=== PATIENT | male | born 1990 | race Caucasian/White ===

== ENCOUNTER 2021-10-27 18:29 | Outpatient (CLI) | payer OTHER, SELFPAY ==
[2021-10-27 17:30] LABS: Abs Immature Grans 0.01 10^3/uL (0.0-0.06); Absolute Basophil Count 0.03 10^3/uL (0.0-0.2); Absolute Eosinophil Count 0.03 10^3/uL (0.0-0.7); Absolute Lymphocyte Count 1.77 10^3/uL (1.2-3.4); Absolute Neutrophil Count 4.11 10^3/uL (1.2-6.7); Basophils % 0.5; Eosinophils % 0.5; HGB 17.1 g/dL (13.5-17.5); Immature Grans % 0.2; Lymphocytes % 27.9; MCH 30.2 pg (27.0-33.0); MCHC 34.2 % (32.0-36.0); MCV 88 fL (80-95); MPV 11.3 fL (8.0-11.0); Monocytes % 6.3; Neutrophils % 64.6; Platelet Count 161 10^3/uL (130-400); RBC 5.66 10^6/uL (4.36-5.78); RDW 11.9 % (11.8-14.1); RDW-SD 38.7 fL; WBC 6.35 10^3/uL (4.4-10.8)
== END 2021-10-27 18:30 | disposition home or self-care (01) ==
LOC: LBO 18:34
PROVIDERS: Visit Provider Physician Assistant
DX: R53.81 Other malaise (principal); R53.83 Other fatigue; R19.7 Diarrhea, unspecified; F41.8 Other specified anxiety disorders
CPT/HCPCS: 36415; 87798; 85025; 87207

== ENCOUNTER 2021-10-30 15:42 | Emergency (ER) | payer OTHER, SELFPAY ==
--- NOTE | 2021-10-30 15:45 | RT.EKG_ITS ---
APPROVED REPORT Exam: Resting ECG Reason for Exam: dizziness Patient Location: E HR:109 bpm ECG Measurements Heart Rate 109 AXIS DE 141 P 75 QRSd 86 QRS 76 QT 305 T -38 QTc 412 Conclusion Sinus tachycardia...rate> 99. Sinus. Normal axis. No STEMI. I have reviewed and interpreted ECG and agree with software generated interpretation.
[2021-10-30 15:50] VITALS: BP 148/125; PULSE 127; RESP 20; TEMP 37.1; O2SAT 99
[2021-10-30 16:45] LABS: Bilirubin Negative (Negative); Blood Negative (Negative); Clarity Clear (Clear); Glucose Negative (Negative); Ketones Negative (Negative); Leukocyte Esterase Negative (Negative); Nitrite Negative (Negative); Urobilinogen 0.2 EU/dL (Up TO 0.2); pH 7.5 (5-8)
--- NOTE | 2021-10-30 16:49 | NUR.NOTE ---
Nursing Note: Pt ambulatory to room, ekg & UA obtained previously, pt denies current c/o pain. Labs done, provider in to see pt, NAD noted.
[2021-10-30 16:51] LABS: Abs Immature Grans 0.02 10^3/uL (0.0-0.06); Absolute Basophil Count 0.03 10^3/uL (0.0-0.2); Absolute Eosinophil Count 0.05 10^3/uL (0.0-0.7); Absolute Lymphocyte Count 1.82 10^3/uL (1.2-3.4); Absolute Monocyte Count 0.44 10^3/uL (0.1-0.8); Absolute Neutrophil Count 4.14 10^3/uL (1.2-6.7); Basophils % 0.5; Eosinophils % 0.8; HCT 48.5 % (40.0-50.0); HGB 16.8 g/dL (13.5-17.5); Immature Grans % 0.3; MCH 30.5 pg (27.0-33.0); MCHC 34.6 % (32.0-36.0); MCV 88 fL (80-95); MPV 10.5 fL (8.0-11.0); Monocytes % 6.8; Neutrophils % 63.6; Platelet Count 195 10^3/uL (130-400); RBC 5.51 10^6/uL (4.36-5.78); RDW 11.9 % (11.8-14.1); RDW-SD 38.2 fL
--- NOTE | 2021-10-30 17:00 | DI.CT_ITS ---
Exam(s) CT ABDOMEN PELVIS W EXAM: CT ABDOMEN PELVIS W CLINICAL HISTORY: upper abd/lower abd pain TECHNIQUE: Imaging Protocol: Axial computed tomography images with coronal and sagittal reformatted images were created and reviewed CONTRAST MATERIAL: Intravenous: Omnipaque 350 Contrast volume:100 mL Oral: No COMPARISON: No exams were available for comparison FINDINGS: ABDOMEN: Lung Bases: Normal where visualized. Liver: Normal density. No measurable mass. Portal, Superior Mesenteric, and Splenic Veins: Unremarkable. Gallbladder and Biliary Tract: No radiodense calculus or dilation. Pancreas: Normal density, no abnormal calcifications or inflammatory process. Spleen: Normal. Adrenals: No masses seen. Kidneys: Normal size, contour and axis. No radiodense stones or obstructive uropathy. No masses seen. Abdominal Aorta: Abdominal portion non-dilated. Bowel: No obstruction or bowel wall thickening. No evidence of appendicitis. Peritoneal Cavity: No ascites, collection or mesenteric inflammatory response. No free air. Lymph Nodes: Within normal limits. Bones: Within normal limits for the patient's age. Soft Tissues: There is a small fat containing umbilical hernia. PELVIS: Bladder: Symmetric distention, no gross wall thickening. Reproductive Organs: Unremarkable as visualized. Lymph Nodes: Within normal limits. Bones: Within normal limits for the patient's age. IMPRESSION: No acute abdominal or pelvic process. RADIATION DOSE DELIVERED: 681.66mGy.cm Total DLP DATA REPOSITORY: All CT scans at this facility are submitted to the National Radiology Data Registry (NRDR) Dose Index Registry (DIR) with the [employer] ([employer]). RADIATION OPTIMIZATION: All CT scans at this facility use at least one of these dose optimization te chniques: automated exposure control; mA and/or kV adjustment per patient size (includes targeted exa ms where dose is matched to clinical indication); or iterative reconstruction.
[2021-10-30 17:04] VITALS: BP 147/92; PULSE 83; TEMP 36.9; O2SAT 98
[2021-10-30 17:04] LABS: *AMPHETAMINES SCREEN URINE Negative (Negative); *BARBITURATES SCREEN URINE Negative (Negative); *BENZODIAZEPINES SCREEN URINE Negative (Negative); Cannabinoids THC Negative (Negative); Cocaine Screen,Urine Negative (Negative); METHADONE URINE SCREEN Negative (Negative); OPIATES URINE SCREEN Negative (Negative)
--- NOTE | 2021-10-30 17:05 | ED.GENADUL_ITS ---
Discharge Plan Disposition Patient Disposition: HOME Condition: Stable Discharge Details Clinical Impression: Chronic nausea, Chronic abdominal pain, Dizziness Primary Care Provider: None,None ED Provider: Tita Brower Home Meds and New Rx's Prescriptions: New sucralfate [Carafate] 1 gram tablet 1 gm PO QACHS Qty: 14 0RF ondansetron 4 mg tablet,disintegrating 4 mg PO TID PRN (Reason: nausea and vomiting) Qty: 6 0RF Continued buspirone 5 mg tablet 5 mg PO TID Qty: 90 0RF Discharge Instructions Instructions: Acute Nausea and Vomiting (ED), Dizziness (ED), Chronic Abdominal Pain (ED) Additional Instructions: Your lab work and imaging today is reassuring and shows no evidence of acute concerning or significant findings. Your COVID and influenza test today are negative. Start taking an [id number] H2 hamlet such as Pepcid or PPI such as Prilosec as directed once daily for the next 2 weeks. Prescriptions for Zofran and Carafate sent electronically to your pharmacy. Follow-up with primary care doctor in 1 week and for referral to general surgery if her symptoms not improve or worsen for consideration for upper endoscopy and/or colonoscopy if indicated. Return to the emergency department with any worsening or new concerning symptoms. Referrals: Louise Potter DO [OSTEOPATHIC DOCTOR] - Discharge Data Discharge Date/Time-TO BE ENTERED AT DEPARTURE: 10/30/21 19:58 Discharge Physician: Tita Brower Medical Decision Making 31-year-old male presents with 1 month of nausea, upset stomach. abdominal pain, and dizziness. Heart rate 120s on arrival. Patient is afebrile and appears significantly anxious. His abdomen is soft and mildly tender in epigastrium. No rigidity or guarding. No CVA tenderness. Differential diagnosis includes gastroenteritis, colitis, PUD, GERD, gastritis, appendicitis, cholecystitis, pancreatitis. History of presentation does not appear consistent with ACS, dissection or AAA. We will place an IV, bolus IV fluids, screening labs, urinalysis, CT abdomen pelvis and COVID test. We will give a dose of IV Zofran, IV Pepcid and Ativan. Labs and imaging reviewed and unremarkable. Patient was given a GI cocktail and Carafate and denies any upper abdominal pain, nausea or dizziness. He does still admit to occasional lower abdominal pain. Patient is requesting to go home. He is staying in the area for the next few weeks before returning to [place]. Patient given surgery follow-up information if needed for referral for upper endoscopy or colonoscopy that do not improve or worsen. He is advised to start an [id number] H2 hamlet or PPI. Prescription for Zofran and Carafate sent electronically to his family's pharmacy. Usual and customary return precautions given prior to discharge. Medical Records Medical records reviewed: Yes I reviewed the patient's medical records. Imaging Data Radiologic Study: Radiologist's impression: CT Abdomen And Pelvis With Contrast Exam date and time: 10/30/2021 5:37 PM Age: 31 years old Clinical indication: Upper abd / lower abd pain TECHNIQUE: Imaging protocol: Computed tomography of the abdomen and pelvis with contrast. Contrast material: OMNIPAQUE 350; Contrast volume: 100 ml; Contrast route: INTRAVENOUS (IV);? COMPARISON: No relevant prior studies available. FINDINGS: Lungs: No acute infiltrate in either lung base. Liver: Normal. No mass. Gallbladder and bile ducts: Normal. No calcified stones. No ductal dilation. Pancreas: Normal. No ductal dilation. Spleen: Normal. No splenomegaly. Adrenal glands: Normal. No mass. Kidneys and ureters: No hydronephrosis or perinephric fluid. No calcified renal or ureteral stones. Stomach and bowel: Unremarkable. No obstruction. No mucosal thickening. Appendix: Normal appendix. Intraperitoneal space: No free air. No significant fluid collection. Vasculature: Unremarkable. No abdominal aortic aneurysm. Lymph nodes: No enlarged lymph nodes. Urinary bladder: Unremarkable as visualized. Reproductive: Unremarkable as visualized. Bones/joints: No acute fracture. Pectum excavatum deformity of the imaged portion of the lower sternum. Soft tissues: Small fat-containing umbilical hernia. IMPRESSION: No acute intra-abdominal or pelvic process. Dictated and Authenticated by: Dante Martinez MD. Ordering:ANNE MARIE Rivers MD Lab Data Lab results reviewed: Yes I reviewed the patient's lab results. Labs: Laboratory Tests Range/Units 10/30/21 10/30/21 10/30/21 16:36 16:36 16:45 WBC (4.4-10.8) 10^3/uL RBC (4.36-5.78) 10^6/uL Hgb (13.5-17.5) g/dL Hct (40.0-50.0) % MCV (80-95) fL MCH (27.0-33.0) pg MCHC (32.0-36.0) % RDW (11.8-14.1) % Plt Count (130-400) 10^3/uL MPV (8.0-11.0) fL Immature Gran % Neutrophils % Lymphocytes % Monocytes % Eosinophils % Basophils % Nucleated RBC % (0.0-0.3) % Absolute Neutrophils (1.2-6.7) 10^3/uL Absolute Lymphocytes (1.2-3.4) 10^3/uL Absolute Monocytes (0.1-0.8) 10^3/uL Absolute Eosinophils (0.0-0.7) 10^3/uL Absolute Basophils (0.0-0.2) 10^3/uL Sodium (136-145) mmol/L Potassium (3.5-5.1) mmol/L Chloride (98-107) mmol/L Carbon Dioxide (21.0-32.0) mmol/L Anion Gap (3-11) mmol/L BUN (7-18) mg/dL Creatinine (0.70-1.30) mg/dL Estimated GFR/1.73 m2 (mL/min/1.73m2) Glucose (74-106) mg/dL Calcium (8.5-10.1) mg/dL Magnesium (1.8-2.4) mg/dL Total Bilirubin (0.2-1.0) mg/dL AST (15-37) U/L ALT (16-63) U/L Alkaline Phosphatase (46-116) U/L Troponin I (<or=60) ng/L Total Protein (6.4-8.2) g/dL Albumin (3.4-5.0) g/dL Lipase (73-393) U/L Urine Color (Yellow) Yellow Urine Clarity (Clear) Clear Urine pH (5-8) 7.5 Ur Specific [place] (1.005-1.025) 1.020 Urine Protein (Negative) mg/dL Negative Urine Ketones (Negative) mg/dL Negative Urine Blood (Negative) Negative Urine Nitrite (Negative) Negative Urine Bilirubin (Negative) Negative Urine Urobilinogen (Up TO 0.2) EU/dL 0.2 Ur Leukocyte Esterase (Negative) Negative Urine Glucose (Negative) mg/dL Negative Urine Opiates Screen (Negative) Negative Urine Methadone Screen (Negative) Negative Ur Barbiturates Screen (Negative) Negative Ur Tricyclics Screen (Negative) Negative Ur Amphetamines Screen (Negative) Negative U Benzodiazepines Scrn (Negative) Negative Urine Cocaine Screen (Negative) Negative Ur THC Screen (Negative) Negative Ethyl Alcohol (<10) mg/dL COVID-19 Source Not Applicable SARS-CoV-2 (PCR) (Negative) Negative Influenza Type A (PCR) (Negative) Negative Influenza Type B (PCR) (Negative) Negative RSV (PCR) (Negative) Negative Range/Units 10/30/21 10/30/21 10/30/21 16:45 16:45 16:45 WBC (4.4-10.8) 10^3/uL 6.50 RBC (4.36-5.78) 10^6/uL 5.51 Hgb (13.5-17.5) g/dL 16.8 Hct (40.0-50.0) % 48.5 MCV (80-95) fL 88 MCH (27.0-33.0) pg 30.5 MCHC (32.0-36.0) % 34.6 RDW (11.8-14.1) % 11.9 Plt Count (130-400) 10^3/uL 195 MPV (8.0-11.0) fL 10.5 Immature Gran % 0.3 Neutrophils % 63.6 Lymphocytes % 28.0 Monocytes % 6.8 Eosinophils % 0.8 Basophils % 0.5 Nucleated RBC % (0.0-0.3) % 0.0 Absolute Neutrophils (1.2-6.7) 10^3/uL 4.14 Absolute Lymphocytes (1.2-3.4) 10^3/uL 1.82 Absolute Monocytes (0.1-0.8) 10^3/uL 0.44 Absolute Eosinophils (0.0-0.7) 10^3/uL 0.05 Absolute Basophils (0.0-0.2) 10^3/uL 0.03 Sodium (136-145) mmol/L 136 Potassium (3.5-5.1) mmol/L 3.5 Chloride (98-107) mmol/L 99 Carbon Dioxide (21.0-32.0) mmol/L 27.7 Anion Gap (3-11) mmol/L 9.3 BUN (7-18) mg/dL 13 Creatinine (0.70-1.30) mg/dL 1.2 Estimated GFR/1.73 m2 (mL/min/1.73m2) >= 60.00 Glucose (74-106) mg/dL 115 H Calcium (8.5-10.1) mg/dL 9.0 Magnesium (1.8-2.4) mg/dL 2.0 Total Bilirubin (0.2-1.0) mg/dL 0.6 AST (15-37) U/L 19 ALT (16-63) U/L 59 Alkaline Phosphatase (46-116) U/L 80 Troponin I (<or=60) ng/L < 50 Total Protein (6.4-8.2) g/dL 8.2 Albumin (3.4-5.0) g/dL 4.7 Lipase (73-393) U/L 178 Urine Color (Yellow) Urine Clarity (Clear) Urine pH (5-8) Ur Specific [place] (1.005-1.025) Urine Protein (Negative) mg/dL Urine Ketones (Negative) mg/dL Urine Blood (Negative) Urine Nitrite (Negative) Urine Bilirubin (Negative) Urine Urobilinogen (Up TO 0.2) EU/dL Ur Leukocyte Esterase (Negative) Urine Glucose (Negative) mg/dL Urine Opiates Screen (Negative) Urine Methadone Screen (Negative) Ur Barbiturates Screen (Negative) Ur Tricyclics Screen (Negative) Ur Amphetamines Screen (Negative) U Benzodiazepines Scrn (Negative) Urine Cocaine Screen (Negative) Ur THC Screen (Negative) Ethyl Alcohol (<10) mg/dL < 3.0 COVID-19 Source SARS-CoV-2 (PCR) (Negative) Influenza Type A (PCR) (Negative) Influenza Type B (PCR) (Negative) RSV (PCR) (Negative) HPI General Mode of arrival: ambulatory . Date/Time Provider Initiated Documentation: 10/30/21 16:23 . Limitations to Documentation: no limitations . Information obtained by: patient . HPI Narrative: Patient is a 31-year-old male who presents with 1 month of nausea, dizziness, upset stomach, abdominal pain, and decreased appetite. Patient states his symptoms started 1 month ago when he traveled to [place] and started with in a few days of arrival with nausea, dizziness, abdominal pain and diarrhea. He states his diarrhea has since resolved but is still having nausea, dizziness, and decreased appetite and has had worsening abdominal pain over the past few days. Patient states the abdominal pain is more constant and sharp in epigastrium and intermittent sharp in the lower abdomen. He has taken Pepto- Bismol without relief. He denies any aggravating or relieving factors. He states he drinks a few drinks of alcohol you normally daily due to his job in the [employer] business but has decreased it to 1 drink of alcohol daily and denies any worsening of symptoms with this. He states he thinks he has lost approximately 5 pounds due to decreased appetite. He denies any vomiting or urinary symptoms. He states his bowel movements have been fairly normal re cently. He states he was seen at [facility] and was given Cipro for his symptoms recently but states he stopped after 1 dose as he developed a sudden onset of sweating and tingling in his hands after taking it. He states he has had similar episodes occurring nightly over the past few weeks but has not taken any additional Cipro. Related Data Home Medications Medication Instructions Recorded Confirmed buspirone 5 mg tablet 5 mg PO TID #90 tabs 10/27/21 10/30/21 ondansetron 4 mg disintegrating 4 mg PO TID PRN nausea and 10/30/21 tablet vomiting #6 tabs sucralfate 1 gram tablet (Carafate) 1 gm PO QACHS #14 tabs 10/30/21 Previous Rx's Medication Instructions Recorded buspirone 5 mg tablet 5 mg PO TID #90 tabs 10/27/21 ondansetron 4 mg disintegrating 4 mg PO TID PRN nausea and 10/30/21 tablet vomiting #6 tabs sucralfate 1 gram tablet (Carafate) 1 gm PO QACHS #14 tabs 10/30/21 Allergies Allergy/AdvReac Type Severity Reaction Status Date / Time ciprofloxacin [From Cipro] Allergy Verified 10/30/21 15:55 General Stated Complaint: Abd Prob KATE: 3 Review of Systems All systems reviewed & are unremarkable except as noted in HPI and below Constitutional Constitutional: Denies chills, Denies excessive sweating, Denies fatigue, Denies fever(s), Denies weakness and Denies weight loss Eyes Eyes: Reports system reviewed and no additional complaints, except as documented and Denies blurry vision ENT Ears, Nose, Mouth, and Throat: Denies vertigo, Denies dizziness, Denies otalgia, Denies nasal congestion, Denies sore throat and Denies throat swelling Cardiovascular Cardiovascular: Denies chest pain, Denies syncope, Denies rapid heart rate and Denies dyspnea Respiratory Respiratory: Denies chest congestion, Denies cough, Denies pain on inspiration and Denies dyspnea Gastrointestinal Gastrointestinal: Denies abdominal pain, Denies diarrhea and Denies vomiting Genitourinary Genitourinary: Denies hematuria, Denies dysuria and Denies flank pain Musculoskeletal Musculoskeletal: Denies back pain and Denies joint swelling Integumentary/Breasts Skin/Breast: Denies lesions and Denies rash Neurologic Neurologic: Denies behavioral changes, Denies confusion, Denies vertigo, Denies dizziness, Denies syncope, Denies localized weakness and Denies weakness Psychiatric Psychiatric: Denies behavioral changes, Denies confusion and Denies depression Endocrine Endocrine: Denies excessive sweating and Denies fatigue Hematologic/Lymphatic Hematologic/Lymphatic: Denies easy bruising and Denies lymphadenopathy Allergic/Immunologic Allergic/Immunologic: Denies throat swelling PFSH All Active Problems (Updated 10/30/21 @ 19:49 by Tita Brower DO) Chronic nausea (Acute) Chronic abdominal pain (Acute) Dizziness (Acute) Medical History (Updated 10/30/21 @ 19:49 by Tita Brower DO) Acne Concussion x2 Deformity PECTUS Fever convulsion x 2 and age of 3 year Vasovagal syncope (11/10/13) Surgical History (Updated 10/30/21 @ 18:25 by Tita Brower DO) No significant past surgical history Family History Mother No problems noted. Father No problems noted. Sister No problems noted. Grandfather No problems noted. Grandfather No problems noted. Grandmother No problems noted. Grandmother No problems noted. Social History Smoking/Tobacco Use Status: Never Smoking risk assessment performed?: Yes Alcohol Intake: current Alcohol Intake frequency: 0-2 drinks per day Drug use: Occasionally Substance use type: crack/cocaine Do you feel safe at home: Yes Do you feel safe in your relationship?: Yes Exam Const General: cooperative, healthy appearing, comfortable and anxious Orientation: alert, awake and oriented x3 HENMT Head: normal to inspection Ears: hearing grossly normal bilaterally, external ears normal and TM's normal bilaterally General nose exam: external nose normal Face and sinus: normal facial exam Mouth: oral mucosae normal Teeth and gingiva: dentition normal Throat: posterior oropharynx normal Eyes General: appearance normal, both eyes and all related structures Eyelids: eyelids normal Pupils: PERRL EOM: EOM intact bilaterally Neck Neck: normal visual inspection Lymphatic: no lymphadenopathy noted Chest Chest: normal inspection of the chest Resp Effort & Inspection: normal respiratory effort and able to speak in complete sentences Auscultation: clear to auscultation bilaterally Cardio Rate: regular rate Rhythm: regular rhythm GI Inspection: normal to inspection Palpation: soft, not firm, no guarding, no hepatosplenomegaly, no masses and tender in the epigastrum Auscultation: normal bowel sounds Back/Spine/Pelvis Back: no CVA tenderness Skin General skin exam: no rashes or lesions noted Neuro General: patient alert and patient awake Cognition: normal cognition Speech: speech normal Gait: normal gait Motor: muscle tone normal throughout Sensory Exam: no sensory deficits noted Extrem General: normal to inspection, full ROM and capillary refill normal Psych Appearance: grossly normal Mental Status: mental status grossly normal Speech and Movement: speech and movement normal Affect: normal affect Thought Process: normal Course Vital Signs Vital signs: Vital Signs Temperature 98.8 F 10/30/21 15:50 Pulse 127 H 10/30/21 15:50 Respiratory Rate 20 10/30/21 15:50 Blood Pressure 148/125 H 10/30/21 15:50 Pulse Oximetry 99 10/30/21 15:50 Temperature 98.8 F 10/30/21 15:50 Temperature Source Temporal Artery Scan 10/30/21 15:50 Pulse 127 H 10/30/21 15:50 Respiratory Rate 20 10/30/21 15:50 Respiratory Effort Non-Labored 10/30/21 15:56 Blood Pressure 148/125 H 10/30/21 15:50 Blood Pressure Position Sitting 10/30/21 15:50 Pulse Oximetry 99 10/30/21 15:50 Oxygen Delivery Method Room Air 10/30/21 15:50 Oxygen Flow Rate 0 10/30/21 15:50 Lab/Test Results Lab/Test Results: Laboratory Tests Range/Units 10/30/21 10/30/21 16:36 16:45 WBC (4.4-10.8) 10^3/uL 6.50 RBC (4.36-5.78) 10^6/uL 5.51 Hgb (13.5-17.5) g/dL 16.8 Hct (40.0-50.0) % 48.5 MCV (80-95) fL 88 MCH (27.0-33.0) pg 30.5 MCHC (32.0-36.0) % 34.6 RDW (11.8-14.1) % 11.9 Plt Count (130-400) 10^3/uL 195 MPV (8.0-11.0) fL 10.5 Immature Gran % 0.3 Neutrophils % 63.6 Lymphocytes % 28.0 Monocytes % 6.8 Eosinophils % 0.8 Basophils % 0.5 Nucleated RBC % (0.0-0.3) % 0.0 Absolute Neutrophils (1.2-6.7) 10^3/uL 4.14 Absolute Lymphocytes (1.2-3.4) 10^3/uL 1.82 Absolute Monocytes (0.1-0.8) 10^3/uL 0.44 Absolute Eosinophils (0.0-0.7) 10^3/uL 0.05 Absolute Basophils (0.0-0.2) 10^3/uL 0.03 Urine Color (Yellow) Yellow Urine Clarity (Clear) Clear Urine pH (5-8) 7.5 Ur Specific [place] (1.005-1.025) 1.020 Urine Protein (Negative) mg/dL Negative Urine Ketones (Negative) mg/dL Negative Urine Blood (Negative) Negative Urine Nitrite (Negative) Negative Urine Bilirubin (Negative) Negative Urine Urobilinogen (Up TO 0.2) EU/dL 0.2 Ur Leukocyte Esterase (Negative) Negative Urine Glucose (Negative) mg/dL Negative
[2021-10-30] MEDS: Normal Saline 1,000 ML 1000 ML IV (17:19)
[2021-10-30] MEDS: LORazepam 20 MG/10 ML VIAL IVP (17:19)
[2021-10-30] MEDS: Ondansetron 4 MG/2 ML VIAL IVP (17:19)
[2021-10-30] MEDS: Famotidine 20 MG/2 ML VIAL IVP (17:19)
[2021-10-30 17:24] LABS: Tricyclic Antidepressants Negative (Negative)
[2021-10-30 17:24] LABS: ETHANOL BLOOD < 3.0 mg/dL (<10)
[2021-10-30 17:26] LABS: ALT 59 U/L (16-63); AST 19 U/L (15-37); Albumin 4.7 g/dL (3.4-5.0); Alkaline Phosphatase 80 U/L (46-116); Anion Gap 9.3 mmol/L (3-11); BUN 13 mg/dL (7-18); Bilirubin, Total 0.6 mg/dL (0.2-1.0); CO2 27.7 mmol/L (21.0-32.0); CREATININE 1.2 mg/dL (0.70-1.30); Chloride 99 mmol/L (98-107); Glucose 115 mg/dL (74-106); Lipase 178 U/L (73-393); Potassium 3.5 mmol/L (3.5-5.1); Sodium 136 mmol/L (136-145); Total Protein 8.2 g/dL (6.4-8.2); Troponin I < 50 ng/L (<or=60)
[2021-10-30 17:36] LABS: COVID-19 PCR Negative (Negative); Influenza A PCR Negative (Negative); Influenza B PCR Negative (Negative); RSV PCR Negative (Negative)
[2021-10-30] MEDS: Omnipaque 350 MG/ML 100 ML BTL IJ (17:41)
--- NOTE | 2021-10-30 18:28 | DI.VRAD_ITS ---
PROCEDURE INFORMATION: Exam: CT Abdomen And Pelvis With Contrast Exam date and time: 10/30/2021 5:37 PM Age: 31 years old Clinical indication: Upper abd / lower abd pain TECHNIQUE: Imaging protocol: Computed tomography of the abdomen and pelvis with contrast. Contrast material: OMNIPAQUE 350; Contrast volume: 100 ml; Contrast route: INTRAVENOUS (IV); COMPARISON: No relevant prior studies available. FINDINGS: Lungs: No acute infiltrate in either lung base. Liver: Normal. No mass. Gallbladder and bile ducts: Normal. No calcified stones. No ductal dilation. Pancreas: Normal. No ductal dilation. Spleen: Normal. No splenomegaly. Adrenal glands: Normal. No mass. Kidneys and ureters: No hydronephrosis or perinephric fluid. No calcified renal or ureteral stones. Stomach and bowel: Unremarkable. No obstruction. No mucosal thickening. Appendix: Normal appendix. Intraperitoneal space: No free air. No significant fluid collection. Vasculature: Unremarkable. No abdominal aortic aneurysm. Lymph nodes: No enlarged lymph nodes. Urinary bladder: Unremarkable as visualized. Reproductive: Unremarkable as visualized. Bones/joints: No acute fracture. Pectum excavatum deformity of the imaged portion of the lower sternum. Soft tissues: Small fat-containing umbilical hernia. IMPRESSION: No acute intra-abdominal or pelvic process. Dictated and Authenticated by: Dante Martinez MD. Ordering:ANNE MARIE Rivers MD
[2021-10-30] MEDS: Sucralfate 1 GM TAB PO (18:42)
== END 2021-10-30 19:58 | disposition home or self-care (01) ==
PROVIDERS: Emergency Provider Physician Assistant
DX: R11.0 Nausea (principal); R10.13 Epigastric pain; G89.29 Other chronic pain; R42 Dizziness and giddiness; Z20.822 Contact with and (suspected) exposure to COVID-19
CPT/HCPCS: 36415; 80053; 80307; 83690; 87637; 93005; 96361; 96374; 96375; 99285; 74177; 80320; 81003; 83735; 84484; 85025; 93010; 99284; J2405; J3490

== ENCOUNTER 2021-11-27 09:07 | Day surgery (SDC) | payer BC, SELFPAY ==
--- NOTE | 2021-11-27 07:18 | W.PM.DSUDISC ---
Discharge Plan Disposition Patient Disposition: HOME Condition: Good Discharge Details Reason For Visit: Colonoscopy Attending Provider: Devon Kaur Primary Care Provider: Unknown,Unknown Home Meds and New Rx's Prescriptions: Continued buspirone 5 mg tablet 5 mg PO TID Qty: 90 0RF alprazolam [Xanax] 0.5 mg tablet 0.5 mg PO QHS PRN sucralfate [Carafate] 1 gram tablet 1 gm PO QACHS Qty: 14 0RF Discontinued polyethylene glycol 3350 17 gram/dose powder 238 g PO ONCE Qty: 238 0RF Rx Instructions: take per colonoscopy instructions bisacodyl [Dulcolax (bisacodyl)] 5 mg tablet,delayed release (DR/EC) 5 mg PO ONCE Qty: 4 0RF Rx Instructions: take per colonoscopy instructions Discharge Instructions Instructions: Colonoscopy (DC) Additional Instructions: 1. If tolerated, consume a soft, low fiber diet for 1-2 days. [address] not drive, drink alcohol, operate machinery, make critical decisions, or do activities that require coordination or balance for 24 hours. 3. Because air was put into your colon during the procedure, expelling air from your rectum (passing gas or farting) is normal. 4. You may not have a bowel movement for 1-3 days because of the colonoscopy prep. This is normal. 5. Go directly to the emergency room if you notice any of the following: Develop chills (warm to touch), or if you have a thermometer and your temperature is above 101 Difficulty breathing or difficultly swallowing Persistent vomiting Severe abdominal pain, other than gas cramps Severe chest pain Black, tarry stools Any bleeding ? exceeding one tablespoon 6. Call your physician if the site where your intravenous was started becomes red, swollen, painful, and warm to touch. 7. Your physician has reviewed your pre-procedure medications. Please continue to take those medications as previously ordered. You will be given specific information/education regarding any changes to your medications before leaving. Activity:: Activity as Tolerated Diet:: As Tolerated Discharge Orders Discharge Orders: Discharge Order (Routine); Ordered 11/27/21 Ordered By: Devon Kaur DS: Diagnosis Discharge Diagnosis (1) Acute abdominal pain: Status: Acute Asessment and Plan: My office will contact you regarding the results of the biopsies
--- NOTE | 2021-11-27 07:22 | W.COLOREPORT ---
Colonoscopy Report Date of procedure: 11/27/21 Pre-op diagnosis general: abdominal pain Post-op diagnosis procedure note: same Procedure: diagnostic colonoscopy Surgeon: Devon Kaur Anesthesia Type: General:No Airway Estimated blood loss (mL): 30 Pathology: other (bx. TI, cecum, ascending, transverse, descending, rectum) Complications: None Disposition: same day Prep: Miralax/Dulcolax Procedure Start Time: 10:43 Procedure End Time: 11:04 Retraction Time: 16 Procedure Description: After the induction of monitored anesthetic care, and with the patient in left lateral decubitus position, I began by performing an external anorectal exam.? Perineum and skin were normal, as was the anal verge.? There was no evidence of external hemorrhoids.? Next, I performed a digital rectal exam.? I did not appreciate any abnormal findings.? Next, I advanced a colonoscope into the rectal vault.? I performed retroflexion.? I did not see signs of pathologic internal hemorrhoids.? Using insufflation, I then advanced the colonoscope beyond the rectal folds and into the sigmoid colon before advancing towards the cecum.? The quality of the prep was excellent.? The scope was noted to be in the cecum by identification of the ileocecal valve and appendiceal orifice.? I cannulated the terminal ileum, and I biopsied several sites of ileal mucosa using cold forceps. I then began withdrawing the colonoscope using repeated irrigation as necessary for full evaluation of the colonic mucosa. ?All of the mucosa appeared normal to me.? I did perform random biopsies of the cecum and ascending, transverse, and descending colons, as well as the rectum. Finally, the scope was withdrawn and the patient was brought to the same-day surgery recovery unit as the anesthetic wore off. ?The findings and instructions were shared with the patient prior to discharge.
[2021-11-27 09:36] VITALS: BP 125/80; PULSE 110; RESP 16; TEMP 36.8; O2SAT 100
[2021-11-27] MEDS: Lactated Ringers 1,000 ML 80 ML IV (09:55)
--- NOTE | 2021-11-27 10:27 | W.ANESPRE ---
General Info Date of Service Date Performed: 11/27/21 Height: 6 ft Weight: 72.8 kg Body Mass Index (BMI): 21.7 Surgical Procedure: Operation Date: 11/27/21 10:50 Proposed Procedure Side Surgeon ivan Kaur MD Meds Allergies and Home Medications Allergies Allergy/AdvReac Type Severity Reaction Status Date / Time ciprofloxacin [From Cipro] Allergy Verified 11/27/21 09:34 Home Medication Medication Instructions Recorded buspirone 5 mg tablet 5 mg PO TID #90 tabs 10/27/21 sucralfate 1 gram tablet (Carafate) 1 gm PO QACHS #14 tabs 10/30/21 alprazolam 0.5 mg tablet (Xanax) 0.5 mg PO QHS PRN 11/12/21 Current Visit Medications: Current Medications Generic Name Dose Route Start Last Admin Trade Name Freq PRN Reason Stop Dose Admin Ringer's Solution 1,000 mls @ 80 mls/hr 11/27/21 06:00 11/27/21 09:55 IV 12/26/21 23:59 80 mls/hr INFUSION ANETTE Administration IV Miscellaneous Supplies 1 each 11/27/21 06:00 Iv Access IV 12/26/21 23:59 DIRECTED ANETTE Sodium Chloride 0 ml 11/27/21 06:00 Normal Saline Flush 10 Ml Syr IV 12/26/21 23:59 PRN PRN Sodium Chloride 0 ml 11/27/21 06:00 Normal Saline 10 Ml Vial IJ 12/26/21 23:59 DIRECTED PRN Sterile Water 0 ml 11/27/21 06:00 Water,Injection,Sterile 10 Ml Vial IJ 12/26/21 23:59 DIRECTED PRN PFSH Active Problems Active Problems: Problem Status Onset Code Chronic nausea R11.0 Dizziness R42 Acute abdominal pain R10.9 Medical History Medical History Acne Concussion x2 Deformity PECTUS excavatum Fever convulsion x 2 and age of 3 year Vasovagal syncope (11/10/13) Pt. states has had this worked up and is triggered by stress, or working out. Did see mortgage loan computation clerk in [place], [place] in 05/2021 Dr. Mauricio Acosta, had full (ECHO, holter, stress test) cardiac work-up and was cleared of any cardiac abnormality Surgical History Surgical History No significant past surgical history Tobacco Smoking/Tobacco Use Status: Never Alcohol Alcohol Intake: current Alcohol intake frequency: 0-2 drinks per day Substance Use Substance use: Occasionally Substance use type: crack/cocaine Details: Per pt. states nothing in the past 6 months Vital Signs and Lab Results Vital Signs Most Recent Vital Signs in EMR: Most Recent Vital Signs Temp Pulse Resp BP Pulse Ox 36.8 C 110 H 16 125/80 100 11/27/21 09:36 11/27/21 09:36 11/27/21 09:36 11/27/21 09:36 11/27/21 09:36 Lab Results Blood Type / Crossmatch: No Data to Display Complete Blood Count: White Blood Count 6.50 10^3/uL (4.4-10.8) 10/30/21 16:45 Red Blood Count 5.51 10^6/uL (4.36-5.78) 10/30/21 16:45 Hemoglobin 16.8 g/dL (13.5-17.5) 10/30/21 16:45 Hematocrit 48.5 % (40.0-50.0) 10/30/21 16:45 Platelet Count 195 10^3/uL (130-400) 10/30/21 16:45 Complete Metabolic Panel: Sodium Level 136 mmol/L (136-145) 10/30/21 16:45 Potassium Level 3.5 mmol/L (3.5-5.1) 10/30/21 16:45 Chloride Level 99 mmol/L (98-107) 10/30/21 16:45 Carbon Dioxide Level 27.7 mmol/L (21.0-32.0) 10/30/21 16:45 Blood Urea Nitrogen 13 mg/dL (7-18) 10/30/21 16:45 Creatinine 1.2 mg/dL (0.70-1.30) 10/30/21 16:45 Estimated GFR/1.73 m2 >= 60.00 (mL/min/1.73m2) 10/30/21 16:45 Magnesium Level 2.0 mg/dL (1.8-2.4) 10/30/21 16:45 Calcium Level 9.0 mg/dL (8.5-10.1) 10/30/21 16:45 Albumin 4.7 g/dL (3.4-5.0) 10/30/21 16:45 Glucose Level 115 mg/dL (74-106) H 10/30/21 16:45 Liver Function Panel: Alanine Aminotransferase (ALT/SGPT) 59 U/L (16-63) 10/30/21 16:45 Aspartate Amino Transf (AST/SGOT) 19 U/L (15-37) 10/30/21 16:45 Coagulation Panel: No Data to Display Cardiac Panel: Troponin I < 50 ng/L (<or=60) 10/30/21 Arterial Blood Gas: No Data to Display Venous Blood Gas: No Data to Display Pancreas Panel: Lipase 178 U/L (73-393) 10/30/21 16:45 Thyroid Panel: No Data to Display Infectious Disease: Coronavirus (COVID-19)(PCR) Negative (Negative) 10/30/21 16:45 Coronavirus 2019 Source Not Applicable 10/30/21 16:45 Influenza Virus Type A (PCR) Negative (Negative) 10/30/21 16:45 Influenza Virus Type B (PCR) Negative (Negative) 10/30/21 16:45 Respiratory Syncytial Virus (PCR) Negative (Negative) 10/30/21 16:45 Blood Cultures: No Data to Display Toxicology Panel: Ethyl Alcohol Level < 3.0 mg/dL (<10) 10/30/21 16:45 Urine Amphetamines Screen Negative (Negative) 10/30/21 16:36 Urine Benzodiazepines Screen Negative (Negative) 10/30/21 16:36 Urine Barbiturates Screen Negative (Negative) 10/30/21 16:36 Urine Cocaine Screen Negative (Negative) 10/30/21 16:36 Urine Methadone Screen Negative (Negative) 10/30/21 16:36 Urine Opiates Screen Negative (Negative) 10/30/21 16:36 Ur Tricyclic Antidepressants Screen Negative (Negative) 10/30/21 16:36 Ur Tetrahydrocannabinol (THC) Scrn Negative (Negative) 10/30/21 16:36 Anesthesia Assessment and Plan Anesthesia History Personal History: No History of General Anesthesia Family History: No Family History of Anesthesia Complications Exercise Tolerance Exercise Tolerance: Metabolic Equivalents>4 Pertinent Negatives Pertinent Negatives: No Symptoms of GERD, No Major Cardiovascular Symptoms or Complaints and No Major Pulmonary Symptoms or Complaints Cardiac & Pulmonary Exam Cardiac Exam: Normal S1/S2 Heart Sounds Pulmonary Exam: Clear Bilateral Breath Sounds Implantable Cardiac Device Does patient have a Pacemaker or an ICD?: No Airway Exam Known Difficult Airway: No Mallampati Class: 1 Mouth Opening: Normal (> 3cm) Thyromental Distance: Greater than 3 cm Neck Range of Motion: Full ROM Neck Circumference: Normal Teeth Condition: Normal Dentition ASA Classification ASA Score: ASA 1 Emergency Case?: No NPO Status NPO Status: NPO Clears >2 hours, Solids >8 hours Anesthesia Plan Resuscitation Status: Full Code Anesthesia Technique: General Anesthesia Airway Planned: Natural Airway Monitors Used: Standard Monitors
[2021-11-27 10:29] VITALS: BMI 21.7
--- NOTE | 2021-11-27 10:53 | BOWEL_PTH ---
PATIENT: Truong Blankenship LOC: [facility] U#:[id number] AGE/SX: 31/M ROOM: RE11/27/[address]: Devon Kaur MD : 1990 BED: DIS: 11/27/2021 SPEC #: [id number] RECD: 11/27/21 13:04 STATUS: DANIEL RE #: [id number] NEETU: 11/27/21 10:[address]: Devon Kaur DEPT: Surgical Specimen RECD BY: Sandra Mayo ENTERED: 11/27/21 13:07 SP TYPE: Bowel OTHR DR: Unknown,Unknown Tissues: 1 - BIOPSY BOWEL 2 - BIOPSY BOWEL 3 - BIOPSY BOWEL 4 - BIOPSY BOWEL 5 - BIOPSY BOWEL 6 - BIOPSY BOWEL Procedures: GROSS AND MICRO LEVEL 4 Comments: [id number]
[2021-11-27 11:15] VITALS: BP 129/113; PULSE 56; RESP 18; TEMP 36.6; O2SAT 97
[2021-11-27 11:44] VITALS: BP 125/85; PULSE 85; RESP 16; TEMP 36.8; O2SAT 100
--- NOTE | 2021-11-27 12:06 | W.ANESPOSTOP ---
Postoperative Evaluation Date, Time and Location Date Performed: 11/27/21 Time Performed: 11:18 Patient Location: Day Surgery Unit Vital Signs Most Recent Imported Vital Signs: Most Recent Vital Signs Temp Pulse Resp BP Pulse Ox 36.8 C 85 16 125/85 100 11/27/21 11:44 11/27/21 11:44 11/27/21 11:44 11/27/21 11:44 11/27/21 11:44 Pain Score Most Recent Pain Score: Most Recent Pain Score Pain Level 0 11/27/21 11:44 Assessment Mental Status: Awake (Alert & Oriented to Patient Baseline) Airway and Respiratory Function: Patent airway with normal (patient baseline) respiratory exam Cardiovascular Function: Hemodynamically Stable Hydration Status: Adequately Hydrated Nausea & Vomiting: No Nausea or Vomiting Pain: Pt. Denies Any Pain Peripheral Nerve Block: Patient did not receive a nerve block
== END 2021-11-27 12:20 | disposition home or self-care (01) ==
PROVIDERS: Visit Provider Surgery
PROC: 0DJD8ZZ Inspection of Lower Intestinal Tract, Via Natural or Artificial Opening Endoscopic (ICD-10-PCS; CPT 45378; principal; 2021-11-27 10:45)
DX: R10.9 Unspecified abdominal pain (principal); R11.0 Nausea; K63.89 Other specified diseases of intestine; K62.89 Other specified diseases of anus and rectum
CPT/HCPCS: 45380; 88305

== ENCOUNTER 2023-11-16 17:12 | Outpatient (REF) | payer BC, SELFPAY ==
[2023-11-16 21:55] LABS: Abs Immature Grans 0.02 10^3/uL (0.0-0.06); Absolute Basophil Count 0.03 10^3/uL (0.0-0.2); Absolute Eosinophil Count 0.03 10^3/uL (0.0-0.7); Absolute Lymphocyte Count 2.16 10^3/uL (1.2-3.4); Absolute Monocyte Count 0.58 10^3/uL (0.1-0.8); Absolute Neutrophil Count 5.91 10^3/uL (1.2-6.7); Basophils % 0.3 %; Eosinophils % 0.3 %; HCT 41.5 % (40.0-50.0); HGB 14.5 g/dL (13.5-17.5); Immature Grans % 0.2 %; Lymphocytes % 24.7 %; MCH 31.8 pg (27.0-33.0); MCHC 34.9 % (32.0-36.0); MCV 91 fL (80-95); MPV 10.4 fL (8.0-11.0); Monocytes % 6.6 %; Neutrophils % 67.9 %; Platelet Count 180 10^3/uL (130-400); RBC 4.56 10^6/uL (4.36-5.78); RDW-SD 39.7 fL; WBC 8.73 10^3/uL (4.4-10.8)
[2023-11-16 22:09] LABS: ESR 1 mm/hr (0-15)
[2023-11-17 18:01] LABS: CRP, High Sensitivity 4.96 mg/L (See Note)
== END 2023-11-16 17:13 | disposition home or self-care (01) ==
LOC: LBN 17:12
PROVIDERS: PCP Nurse Practitioner Family; Visit Provider Physician Assistant
DX: R10.2 Pelvic and perineal pain (principal); T80.90XA Unspecified complication following infusion and therapeutic injection, initial encounter
CPT/HCPCS: 85652; 86141; 85025

== ENCOUNTER 2023-11-18 10:00 | Outpatient (CLI) | payer BC, SELFPAY ==
--- NOTE | 2023-11-18 08:30 | DI.MRI_ITS ---
Exam(s) MR PELVIS WO/W EXAM: MR PELVIS WO/W CLINICAL HISTORY: Left pelvic pain, hip pain, swelling, recent injection. TECHNIQUE: Multiplanar multisequence MRI of the was performed. CONTRAST MATERIAL: IV Contrast: 15 mL of Dotarem contrast administered. COMPARISON: CT CT ABDOMEN PELVIS W from 10/30/2021 FINDINGS: BONES/JOINTS: No fracture or contusion pattern. No bone lesions identified. No findings to suggest os teomyelitis or joint infection. MUSCULOTENDINOUS STRUCTURES: The muscles show normal signal and size. No muscular fatty atrophy. Ther e is a peripherally enhancing fluid collection in the left gluteus arik muscle measuring 6.8 cm lo ng by 0.7 cm wide. (Series [id number], images 16-23). There is surrounding edema in the musculature and soft tissues. SOFT TISSUES: The pelvic soft tissues are unremarkable. OTHER FINDINGS: None. IMPRESSION: Peripherally enhancing fluid collection in the left gluteus arik muscle suspicious for an abscess. Unexpected findings DATA REPOSITORY:
--- OUTSIDE RECORDS SUMMARY | 2023-11-18 10:03 | XMS_ITS | Referral Summary ---
Author Organization [facility] Address [address] [place] [address] Care Team Providers Care Special Service Representative Name Role Phone Unknown, Provider Primary Care Provider Encounters Date Type Department Care Team Description 11/17/2023 Lab Requisition [facility] Pathology & Laboratory Medicine - [address] [address] Outr Resulting Lab, Provider from Last 3 Months Social History Tobacco Use Types Packs/Day Years Used Date Smoking Tobacco: Never Assessed Sex and Gender Information Value Date Recorded Sex Assigned at Not on file Gender Identity Not on file Sexual Orientation Not on file Plan of Treatment Not on file Procedures Procedure Name Priority Date/Time Associated Diagnosis Comments HIGH SENSITIVITY C-REACTIVE PROTEIN (CARDIOVASCULAR DISEASE) Routine 11/16/2023 21:20 EDT from Last 3 Months Results * HIGH SENSITIVITY C-REACTIVE PROTEIN (CARDIOVASCULAR DISEASE) (11/16/2023 21:20 EDT) High Sensitivity CRP 4.96 See Note mg/L 11/17/2023 17:55 EDT [facility] Comment: Reference Range: ??Low Risk: ? <1.0 mg/L ??Average Risk: ?? 1.0 - 3.0 mg/L ??High Risk: ?>3.0 mg/L ??Indeterminate*: >10.0 mg/L ??*May be an indication of another source of inflammation or infection Blood VENOUS BLOOD / Unknown 11/16/2023 21:20 EDT 11/17/2023 17:26 EDT Provider Outr Resulting Lab CHEMISTRY & BLOOD GAS ORDERABLES [facility] [address] [place] [address] from Last 3 Months Truong Blankenship Personal/Family Self 1990 [address] [facility] [place] [address] Truong Blankenship Personal/Family Self 1990 [address] [facility] [place] [address] Truong Blankenship Personal/Family Self 1990 [address] [facility] [address] Truong Blankenship Personal/Family Self 1990 [address] [facility] [place] [address] Truong Blankenship Personal/Family Self 1990 [address] [facility] [address] Truong Blankenship Personal/Family Self 1990 [address] [place] [address] Truong Blankenship Personal/Family Self 1990 [address] [facility] [address] Care Teams Special Service Representative Relationship Specialty Start Date End Date Unknown, Provider, PCP - General 10/27/21
--- OUTSIDE RECORDS SUMMARY | 2023-11-18 10:03 | XMS_ITS | Clinical Summary ---
Author Organization [facility] Address [address] [place] [address] Care Team Providers Care Silk Conditioner Name Role Phone Unknown, Provider Primary Care Provider Encounters Date Type Department Care Team Description 11/17/2023 Lab Requisition [facility] Pathology & Laboratory Medicine - [address] [address] Outr Resulting Lab, Provider from Last 3 Months Social History Tobacco Use Types Packs/Day Years Used Date Smoking Tobacco: Never Assessed Sex and Gender Information Value Date Recorded Sex Assigned at Not on file Gender Identity Not on file Sexual Orientation Not on file Plan of Treatment Health Maintenance Due Date Last Done Comments Hepatitis C Screen 1990 Hepatitis B Vaccine (1 of 3 - 19+ 3-dose series) 06/21 COVID-19 Vaccine ( season) 2022 Procedures Procedure Name Priority Date/Time Associated Diagnosis Comments HIGH SENSITIVITY C-REACTIVE PROTEIN (CARDIOVASCULAR DISEASE) Routine 11/16/2023 21:20 EDT from Last 3 Months Results * HIGH SENSITIVITY C-REACTIVE PROTEIN (CARDIOVASCULAR DISEASE) (11/16/2023 21:20 EDT) High Sensitivity CRP 4.96 See Note mg/L 11/17/2023 17:55 EDT [facility] Comment: Reference Range: ??Low Risk: ? <1.0 mg/L ??Average Risk: ?? 1.0 - 3.0 mg/L ??High Risk: ?>3.0 mg/L ??Indeterminate*: >10.0 mg/L ??*May be an indication of another source of inflammation or infection Blood VENOUS BLOOD / Unknown 11/16/2023 21:20 EDT 11/17/2023 17:26 EDT Provider Outr Resulting Lab CHEMISTRY & BLOOD GAS ORDERABLES [facility] [address] [place] [address] from Last 3 Months Care Teams Silk Conditioner Relationship Specialty Start Date End Date Unknown, Provider, PCP - General 10/27/21
--- OUTSIDE RECORDS SUMMARY | 2023-11-18 10:04 | XMS_ITS | Encounter Summary ---
Author Organization [facility] Address [facility] [place] [address] Care Team Providers Care Glass Furnace Operator Name Role Phone Sabas Baker DO Primary Care Provider Reason for Visit * Reason Onset Date Comments Medication Refill 10/14/2012 Encounter Details Date Type Department Care Team (Late st Contact Info) Description 10/14/[address] [facility] [address] [place] [address] Oscar Osborn III, MD [facility] [address] [address] Social History Tobacco Use Types Packs/Day Years Used Date Smoking Tobacco: Never Smokeless Tobacco: Never Alcohol Use Standard Drinks/Week Comments Not Asked 0 (1 standard drink = 0.6 oz pur e alcohol) Sex and Gender Information Value Date Recorded Sex Assigned at Not on file Gender Identity Not on file Sexual Orientation Not on file documented as of this encounter Plan of Treatment Not on file documented as of this encounter Visit Diagnoses Not on filedocumented in this encounter Care Teams Glass Furnace Operator Relationship Specialty Start Date End Date Sabas Baker DO [address] [place] [address] PCP - General 02/18/10 documented as of this encounter
--- OUTSIDE RECORDS SUMMARY | 2023-11-18 10:04 | XMS_ITS | Encounter Summary ---
Author Organization [facility] [place] [address] Care Team Providers Care Office Clin Asst Name Role Phone Sabas Baker DO Primary Care Provider [phone] Encounter Details Date Type Department Care Team (Late st Contact Info) Description 04/08/2011 1:04 PM EST - 04/08/2011 11:59 PM EST Hospital Encounter Non-Invasive [place] [id number] STRESS TEST, ETT [facility] [address] Sabas Baker DO [address] [place], [place] [address] Syncope Discharge Disposition: Home Social History Tobacco Use Types Packs/Day Years Used Date Smoking Tobacco: Never Smokeless Tobacco: Never Alcohol Use Standard Drinks/Week Comments Not Asked 0 (1 standard drink = 0.6 oz pur e alcohol) Sex and Gender Information Value Date Recorded Sex Assigned at Not on file Gender Identity Not on file Sexual Orientation Not on file documented as of this encounter Medications at Time of Discharge Medication Sig Dispensed Refills Start Date End Date DOXYCYCLINE CALCIUM ORAL Take 1 tablet by mouth daily. 10/30/2011 adapalene (DIFFERIN) 0.1 % creamIndications:Acne Apply topically. At bedtime for acne 60 g 3 10/30/2010 02/22/2012 clindamycin (CLEOCIN T) 1 % lotionIndications:Acne Apply 1 applicator topically See Admin Instructions. 120 mL 3 09/30/2010 10/24/2012 doxycycline (VIBRA-TABS) 100 mg tabletIndications:Acne Take 1 tablet by mouth daily for 30 days. 30 tablet 3 04/08/2011 05/08/2011 documented as of this encounter Plan of Treatment Not on file documented as of this encounter Procedures Procedure Name Priority Date/Time Associated Diagnosis Comments STRESS TEST, EXERCISE (TREADMILL) Routine 012 Syncope documented in this encounter Results * Stress Test, Exercise (Treadmill) (04/08/2011) Anatomical Region Laterality Modality Other Sabas Baker DO [facility] ORD ERABLES documented in this encounter Visit Diagnoses Diagnosis Syncope Syncope and collapse documented in this encounter Care Teams Office Clin Asst Relationship Specialty Start Date End Date Sabas Baker DO [address] [place] [address] PCP - General 02/18/10 documented as of this encounter
--- OUTSIDE RECORDS SUMMARY | 2023-11-18 10:04 | XMS_ITS | Encounter Summary ---
Author Organization [facility] Address [address] [place] [address] Care Team Providers Care Caddie Supervisor Name Role Phone Unknown, Provider Primary Care Provider Encounter Details Date Type Department Care Team (Late st Contact Info) Description 11/27/2021 Lab Requisition [facility] Pathology & Laboratory Medicine - [facility] [address] [place] [address] Devon Kaur MD [address] [place] [address], [address] [place] [address] Unspecified abdominal pain Social History Tobacco Use Types Packs/Day Years Used Date Smoking Tobacco: Never Assessed Sex and Gender Information Value Date Recorded Sex Assigned at Not on file Gender Identity Not on file Sexual Orientation Not on file documented as of this encounter Plan of Treatment Not on file documented as of this encounter Procedures Procedure Name Priority Date/Time Associated Diagnosis Comments SURGICAL PATHOLOGY Today 11/27/2021 10 :53 EDT Unspecified abdominal pain documented in this encounter Results * SURGICAL PATHOLOGY (11/27/2021 10:53 EDT) Note to Patient The following pathology results have been interpreted by your pathologist and may be available to you before your health provider has had the opportunity to review them. Please allow time for your provider to receive these results and explore management options, if applicable. 12/02/2021 15:14 EDT [facility] Final Diagnosis A. COLON, CECUM, BIOPSY: - Focal, mildly active colitis. - Negative for histologic features of chronicity. B. TERMINAL ILEUM, BIOPSY: - Small bowel mucosa with no specific pathologic features. C. COLON, ASCENDING, BIOPSY: - Colonic mucosa with no specific pathologic features. D. COLON, TRANSVERSE, BIOPSY: - Colonic mucosa with no specific pathologic features. E. COLON, DESCENDING, BIOPSY: - Colonic mucosa with no specific pathologic features. F. RECTUM, BIOPSY: - Rectal mucosa with no specific pathologic features. 12/02/2021 15:14 [facility] Attestation By the signature below, the attending physician certifies that they have 1) personally conducted a gross and/or microscopic examination of the described specimen(s), and/or personally interpreted the results of laboratory testing of the described specimen(s), and 2) personally rendered or confirmed the above diagnosis. 12/02/2021 15:14 [facility] at 1514 Clinical History Abdominal pain 12/02/2021 15:14 [facility] Gross Description A. Received in formalin labelled with proper patient identification (initials K, R) and cecal biopsies are two red tissues (0.5 x 0.1 x 0.1 cm and 0.1 x 0.1 x 0.1 cm). Entirely submitted in A1. B. Received in formalin labelled with proper patient identification (initials K, R) and terminal ileum are two red tissues (0.3 x 0.1 x 0.1 cm and 0.1 x 0.1 x 0.1 cm). Entirely submitted in B1. C. Received in formalin labelled with proper patient identification (initials K, R) and ascending colon is a single red tissue fragment (0.5 x 0.1 x 0.1 cm). Submitted intact in C1. D. Received in formalin labelled with proper patient identification (initials K, R) and transverse colon is a single red tissue fragment (0.5 x 0.1 x 0.1 cm). Submitted intact in D1. E. Received in formalin labelled with proper patient identification (initials K, R) and descending colon are two red tissues (0.4 x 0.1 x 0.1 cm and 0.2 x 0.1 x 0.1 cm). Entirely submitted in E1. F. Received in formalin labelled with proper patient identification (initials K, R) and rectal biopsies are two red tissues (0.4 x 0.1 x 0.1 cm and 0.3 x 0.1 x 0.1 cm). Entirely submitted in F1. NAEL ANR 11/28/2021 6:26 12/02/2021 15:14 EDT [facility] Performing Lab [facility] 12/02/2021 15:14 EDT [facility] Scanned Images 12/02/2021 15:14 EDT [facility] Tissue SPECIMEN FROM RECTUM / Unknown 11/27/2021 10:53 EDT 11/27/2021 19:40 EDT Tissue specimen (specimen) STRUCTURE OF SMALL INTESTINE / Unknown 11/27/2021 10:53 EDT 11/27/2021 19:40 EDT Tissue specimen (specimen) ASCENDING COLON STRUCTURE / Unknown 11/27/2021 10:53 EDT 11/27/2021 19:40 EDT Tissue specimen (specimen) TRANSVERSE COLON STRUCTURE / Unknown 11/27/2021 10:53 EDT 11/27/2021 19:40 EDT Tissue specimen (specimen) DESCENDING COLON STRUCTURE / Unknown 11/27/2021 10:53 EDT 11/27/2021 19:40 EDT Tissue specimen (specimen) SPECIMEN FROM RECTUM / Unknown 11/27/2021 10:53 EDT 11/27/2021 19:40 EDT Devon Kaur MD PATHOLOGY ORDERABLES [facility] [address] [place] [address] documented in this encounter Visit Diagnoses Diagnosis Unspecified abdominal pain documented in this encounter Care Teams Caddie Supervisor Relationship Specialty Start Date End Date Unknown, Provider, PCP - General 10/27/21 documented as of this encounter
--- OUTSIDE RECORDS SUMMARY | 2023-11-18 10:04 | XMS_ITS | Encounter Summary ---
Author Organization [facility] Address [facility] [place] [address] Care Team Providers Care Pressure Tank Operator Name Role Phone Sabas Baker DO Primary Care Provider Reason for Visit * Reason Onset Date Comments Medication Refill 02/22/2012 Encounter Details Date Type Department Care Team (Late st Contact Info) Description 02/22/2012 Refill Dermatology at [facility] [address] [place] [address] Oscar Osborn III, MD [facility] [address] [address] Acne (Primary Dx) Social History Tobacco Use Types Packs/Day Years [...] documented as of this encounter Visit Diagnoses Diagnosis Acne- Primary Other acne documented in this encounter Care Teams Pressure Tank Operator Relationship Specialty Start Date End Date Sabas Baker DO [address] [place] [address] PCP - General 02/18/10 documented as of this encounter
--- OUTSIDE RECORDS SUMMARY | 2023-11-18 10:04 | XMS_ITS | Encounter Summary ---
Author Organization [facility] Address [facility] [place] [address] Care Team Providers Care Custodial Supervisor Name Role Phone Samuel Sabas HORN Primary Care Provider Reason for Visit * Reason Onset Date Comments Medication Refill 07/08/2010 Encounter Details Date Type Department Care Team (Late st Contact Info) Description 07/08/2010 [place] [address] Oscar Osborn III, MD [facility] [address] [address] Social History Tobacco Use Types Packs/Day Years Used Date Smoking Tobacco: Never Assessed Sex and Gender Information Value Date Recorded Sex Assigned at Not on file Gender Identity Not on file Sexual Orientation Not on file documented as of this encounter Miscellaneous Notes * Telephone Encounter - Can Evangelista LPN - 07/08/2010 4:33 PM EDT Message copied by CAN EVANGELISTA on WedJul 08, 2010 4:33 PM ------ Message from: MANA HOLGUIN Created: WedJul 08, 2010 4:27 PM Contact: Priti Flores Ms. Blankenship called requesting a renewal on Doxycycline. Pharmacy information is [facility] in [facility]. Please advise when his rx has been sent, and I will call Ms. Blankenship at [phone]. Thank you, Mana Ley documented in this encounter Plan of Treatment Not on file documented as of this encounter Visit Diagnoses Not on filedocumented in this encounter Care Teams Custodial Supervisor Relationship Specialty Start Date End Date Sabas Baker DO [address] [place] [address] PCP - General 02/18/10 documented as of this encounter
--- OUTSIDE RECORDS SUMMARY | 2023-11-18 10:04 | XMS_ITS | Encounter Summary ---
Author Organization [facility] Address [facility] [place] [address] Care Team Providers Care Client Relations Specialist Name Role Phone Sabas Baker DO Primary Care Provider [phone] Reason for Visit * Reason Onset Date Comments Medication Refill 08/17/2012 Encounter Details Date Type Department Care Team (Late st Contact Info) Description 08/17/2012 Refill Dermatology at [facility] [address] [place] [address] Oscar Osborn III, MD [facility] DR [address] [address] Social History Tobacco Use Types Packs/Day Years [...] encounter Miscellaneous Notes * Telephone Encounter - Lindy Lewis LPN - 08/17/2012 4:13 PM EDT I spoke with Truong's mother. She states he never started Accutane. He would like a script for doxycycline. We will fill this for 1 month with no refill. He needs to call and make a follow up appointment in August. His mother will let him know. documented in this encounter Plan of Treatment Not on file documented as of this encounter Visit Diagnoses Not on filedocumented in this encounter Care Teams Client Relations Specialist Relationship Specialty Start Date End Date Sabas Baker DO [address] [facility] [address] [place] [address] PCP - General 02/18/10 documented as of this encounter
--- OUTSIDE RECORDS SUMMARY | 2023-11-18 10:04 | XMS_ITS | Encounter Summary ---
Author Organization [facility] Address [facility] [place] [address] Care Team Providers Care Art Critic Name Role Phone Samuel, Sabas HORN Primary Care Provider [phone] Reason for Visit * Reason Comments Acne Encounter Details Date Type Department Care Team (Late st Contact Info) Description 10/24/2012 3:45 PM EDT Follow-Up Dermatology at [facility] [address] [place] [address] Oscar Osborn III, MD [facility] [address] [place] [address] Acne (Primary Dx) Discharge Disposition: Home Social History Tobacco Use Types Packs/Day Years Used Date Smoking Tobacco: Never Smokeless Tobacco: Never Alcohol Use Standard Drinks/Week Comments Not Asked 0 (1 standard drink = 0.6 oz pur e alcohol) Sex and Gender Information Value Date Recorded Sex Assigned at Not on file Gender Identity Not on file Sexual Orientation Not on file documented as of this encounter Progress Notes * Edie Montoya LPN - 10/24/2012 3:58 PM EDT DERMATOLOGY ESTABLISHED PATIENT CLINIC NOTE Date of service: 10/24/2012 Truong Blankenship : 1990 Provider: Oscar Osborn MD PROBLEM: acne SKIN HISTORY: acne HPI Truong Blankenship is a 22 y.o. year old male. Truong is here in follow up for his acne.He has been taking the Doxycycline 100 mg once daily and using his topical medications as prescribed. He has seen some improvement. He still has a few active facial lesions, but his back is clear. He will be in [place] for 4 months and would like to discuss refills to cover him while he is there. He has had a few headaches recently, but they respond to Tylenol and he wants to talk about what to do if he gets severe headaches. . ADR: No Known Allergies ROS General: feeling well Skin: denies other skin complaints EXAM General: NAD, pleasant, cooperative male. Skin:Focused exam of face,back Significant skin findings: A. mild superficial erythematous papules, occasional pustules, few open comedones ASSESSMENT/PLAN: A. Acne, I recommended he continue on the present regimen. He will stay on the Doxycycline 100 mg once daily, may increase to twice daily with flares. He will continue topicals daily. If he clears, he can wean off the Doxy, but keep up the topicals. Cautioned him about sun exposure. His headaches do not sound like Pseudotumor Cerebri, I went over the symptoms with him and if he gets severe, non-responsive headaches or visual changes, he will as to get checked. We asked for a 3-4 month supply of Doxy, but he will try to get by on the lowest dose possible. Follow up in February when he returns from [place] Note initiated by: EDIE MONTOYA LPN Routed to physician for review and changes: Oscar Osborn MD Section of Dermatology [facility] documented in this encounter Plan of Treatment Not on file documented as of this encounter Visit Diagnoses Diagnosis Acne- Primary Other acne documented in this encounter Care Teams Art Critic Relationship Specialty Start Date End Date Sabas Baker DO [address] [place] [address] PCP - General 02/18/10 documented as of this encounter
--- OUTSIDE RECORDS SUMMARY | 2023-11-18 10:04 | XMS_ITS | Encounter Summary ---
Author Organization [facility] Address [facility] [place] [address] Care Team Providers Care Computer Systems Auditor Name Role Phone Samuel, Sabas HORN Primary Care Provider [phone] Reason for Visit * Reason Comments Acne Encounter Details Date Type Department Care Team (Late st Contact Info) Description 04/08/2011 4:15 PM EST [place] [address] Oscar Osborn III, MD [facility] [address] [place] [address] Acne (Primary Dx) Discharge Disposition: Home Social [...] as of this encounter Progress Notes * Oscar Osborn III, MD - 04/08/2011 4:34 PM EST DERMATOLOGY ESTABLISHED PATIENT CLINIC NOTE Date of service: 04/08/2011 Truong Blankenship : 1990 Provider: Oscar Osborn MD PROBLEM: acne SKIN HISTORY: acne HPI Truong Blankenship is a 20 y.o. year old male. Truong is here in follow up for his acne follow up before he goes back to school. He has been taking the Doxycycline 100 mg once daily and using his topical medications as prescribed and is happy with the results. ADR: No Known Allergies ROS General: feeling well Skin: denies other skin complaints EXAM General: NAD, pleasant, cooperative male. Skin:Focused exam of face Significant skin findings: A. Few superficial erythematous papules, no pustules, few open comedones ASSESSMENT/PLAN: A. Acne improved, under good control. I discussed this with the patient and recommended. He continue on the present regimen. He will stay on the Doxycycline 100 mg once daily, may increase to twice daily with flares. He will continue topicals daily. If he clers, he can wean off the Doxy, but keep up the topicals. Acne surgery: small inflammatory papule, prepped with alcohol, incised with # 22 scalpel, and compressed with gauze. Bleeding minimal. Follow up in the spring when he returns from school. Call if problems arise. Note initiated by: EDIE MONTOYA LPN Routed to physician for review and changes: Oscar Osborn MD Section of Dermatology [facility] documented in this encounter Plan of Treatment Not on file documented as of this encounter Visit Diagnoses Diagnosis Acne- Primary Other acne documented in this encounter Care Teams Computer Systems Auditor Relationship Specialty Start Date End Date Sabas Baker DO [address] [place] [address] PCP - General 02/18/10 documented as of this encounter
--- OUTSIDE RECORDS SUMMARY | 2023-11-18 10:04 | XMS_ITS | Encounter Summary ---
Author Organization [facility] Address [facility] [place] [address] Care Team Providers Care Java Web Developer Name Role Phone Sabas Baker DO Primary Care Provider [phone] Encounter Details Date Type Department Care Team (Late st Contact Info) Description 08/17/2012 Telephone Dermatology at [facility] [address] [place] [address] Oscar sOborn III, MD [facility] [address] [place] [address] Social History Tobacco Use Types Packs/Day Years [...] encounter Miscellaneous Notes * Telephone Encounter - Oscar Osborn III, MD - 08/17/2012 5:17 PM EDT We called to talk to Truong about his acne. He was to start Accutane, but never followed up. His mother reported that he decided against taking accutane and stayed on Doxy 100 mg a day. He hadbeen doing fairly well, but ran out of medicine. He wants more Doxy. Plan: We discussed this with his mother and we will give him a month of Doxy 100 mg QD with food and see him with in the next month to see how he is doing and decide about follow up therapy. He will check his schedule and make an appointment. We authorized a Doxy 100 mg #30. 1 po qd for acne documented in this encounter Plan of Treatment Not on file documented as of this encounter Visit Diagnoses Not on filedocumented in this encounter Care Teams Java Web Developer Relationship Specialty Start Date End Date Sabas Baker DO [address] [place] [address] PCP - General 02/18/10 documented as of this encounter
--- OUTSIDE RECORDS SUMMARY | 2023-11-18 10:04 | XMS_ITS | Encounter Summary ---
Author Organization [facility] Address [facility] [place] [address] Care Team Providers Care Dermatology Specialist Name Role Phone Samuel Sabas HORN Primary Care Provider [phone] Reason for Visit * Reason Comments Acne Encounter Details Date Type Department Care Team (Late st Contact Info) Description 10/30/2011 8:30 AM EDT [place] [address] Oscar Osborn III, MD [facility] [address] [place] [address] Acne (Primary Dx) Discharge Disposition: Home Social [...] Notes * Oscar Osborn III, MD - 10/30/2011 8:26 AM EDT DERMATOLOGY ESTABLISHED PATIENT CLINIC NOTE Date of service: 10/30/2011 Truong Blankenship : 1990 Provider: Oscar Osborn MD PROBLEM: acne SKIN HISTORY: acne HPI Truong Blankenship is a 21 y.o. year old male. Truong is here in follow up for his acne follow up before he goes back to school. He has been taking the Doxycycline 100 mg once daily and using his topical medications as prescribed and is happy with the results. He gets occasional flares, but in general his acne has maryjo under control. ADR: No Known Allergies ROS General: feeling well Skin: denies other skin complaints EXAM General: NAD, pleasant, cooperative male. Skin:Focused exam of face Significant skin findings: A. Few superficial erythematous papules, no pustules, few open comedones ASSESSMENT/PLAN: A. Mild Acne, improved with therapy and under good control. I discussed this with the patient and recommended he continue on the present regimen. He will stay on the Doxycycline 100 mg once daily, may increase to twice daily with flares or wean of QOD if he continues to do well. He will continue topicals daily. If he clears, he can wean off the Doxy, but keep up the topicals. Follow up at [facility] when he returns from school. Call if problems arise. Note initiated by: NO AMADO LPN Routed to physician for review and changes: Oscar Osborn MD Section of Dermatology [facility] documented in this encounter Plan of Treatment Not on file documented as of this encounter Visit Diagnoses Diagnosis Acne- Primary Other acne documented in this encounter Care Teams Dermatology Specialist Relationship Specialty Start Date End Date Sabas Baker DO [address] [place] [address] PCP - General 02/18/10 documented as of this encounter
--- OUTSIDE RECORDS SUMMARY | 2023-11-18 10:04 | XMS_ITS | Encounter Summary ---
Author Organization [facility] Address [facility] [place] [address] Care Team Providers Care Knitter Helper Name Role Phone Samuel Sabas HORN Primary Care Provider [phone] Reason for Visit * Reason Comments Acne Encounter Details Date Type Department Care Team (Late st Contact Info) Description 03/10/2012 10:00 AM EST Follow-Up Dermatology at [facility] [address] [place] [address] Oscar Osborn III, MD [facility] [address] [address] On Accutane therapy (Primary Dx); Acne Discharge Disposition: Home Social History Tobacco Use Types Packs/Day Years Used Date Smoking Tobacco: Never Smokeless Tobacco: Never Alcohol Use Standard Drinks/Week Comments Not Asked 0 (1 standard drink = 0.6 oz pur e alcohol) Sex and Gender Information Value Date Recorded Sex Assigned at Not on file Gender Identity Not on file Sexual Orientation Not on file documented as of this encounter Last Filed Vital Signs Vital Sign Reading Time Taken Comments Blood Pressure - - Pulse - - Temperature - - Respiratory Rate - - Oxygen Saturation - - Inhaled Oxygen Concentration - - Weight 67.1 kg (148 lb) 03/10/2012 10:26 AM EST Height - - Body Mass Index 19.53 04/08/2011 2:19 PM EST documented in this encounter Progress Notes * Danuta Montoya LPN - 03/10/2012 10:06 AM EST DERMATOLOGY ESTABLISHED PATIENT CLINIC NOTE Date of service: 03/10/2012 Truong Blankenship : 1990 Provider: Oscar Osborn MD PROBLEM: acne SKIN HISTORY: acne HPI Truong Blankenship is a 21 y.o. year old male. Truong is here in follow up for his acne follow up.He has been taking the Doxycycline 100 mg once daily and using his topical medications as prescribed. He iscontinuing to break out with significant cystic lesions. He would like to discuss other treatment options to better control his acne. He feels like has reached a plateau. ADR: Not on File ROS General: feeling well Skin: denies other skin complaints EXAM General: NAD, pleasant, cooperative male. Skin:Focused exam of face Significant skin findings: A. Few superficial erythematous papules, occasional pustule and cyst, few open comedones ASSESSMENT/PLAN: A. Recalcitrant inflammatory and cystic Acne, I discussed this condition with the patient and explored therapeutic options. I recommended considering wither Minocin or accutane. After considering hisoptions and the aims, risks and benefits of the medications he chose accutane. He is away at school, but feels he can come monthly for his checks. Discussed isotretinoin treatment in depth. Gave pamphlet and reviewed indications, contraindications, mechanism of action, and treatment expectations. Reviewed common side effects such as skin, eye and lip dryness, mild nosebleeds, increased skin fragility, mild muscle aches, hair thinning in some patients, possible decreased night vision and increased sun sensitivity. Discussed possible relationship to Crohn???s disease and IBD (pt does not have a history of these). Also reviewed uncommon but more serious side effects that should prompt this patient to hold off taking the isotretinoin and notify me, including severe headaches, nausea, vomiting and blurred vision, changes in mood, specifically depression, an alteration in normal thoughts, severe stomach pain, diarrhea and rectal bleeding, persistent dryness of the eyes, yellowing of the skin or dark urine. Reviewed importance and expectation of periodic blood test monitoring and follow-up. Labs ordered today, will only notify patients if labs are abnormal. Follow-up 1 month Note initiated by: DANUTA MONTOYA LPN Routed to physician for review and changes: Oscar Osborn MD Section of Dermatology [facility] documented in this encounter Plan of Treatment Not on file documented as of this encounter Procedures Procedure Name Priority Date/Time Associated Diagnosis Comments DIFFERENTIAL, AUTOMATED Routine 03/10/20 12 10:58 AM EST CBC (WITH DIFF) Routine 03/10/2012 10:58 AM EST On Accutane therapy TRIGLYCERIDE Routine 03/10/2012 10:58 AM EST On Accutane therapy ALANINE AMINOTRANSFERASE Routine 012 10:58 AM EST On Accutane therapy ASPARTATE AMINOTRANSFERASE Routine 03/10/2012 10:58 AM EST On Accutane therapy CHOLESTEROL, TOTAL Routine 03/10/2012 10 :58 AM EST On Accutane therapy documented in this encounter Results * Differential, Automated (03/10/2012 10:58 AM EST) Neutrophil % 50.8 34.0 - 71.0 % CERNER MILLENNIUM Neutrophil Absolute 3.16 1.50 - 6.30 x10(3)/mcL CERNER MILLENNIUM Lymph % 39.8 19.0 - 53.0 % CERNER MILLENNIUM Lymphocytes Abs 2.5 1.0 - 3.6 x10(3)/mcL CERNER MILLENNIUM Monocyte % 7.5 4.0 - 13.0 % CERNER MILLENNIUM Monocyte Abs 0.5 0.2 - 1.0 x10(3)/mcL CERNER MILLENNIUM Eos % 1.4 0.0 - 7.0 % CERNER MILLENNIUM Eosinophils Abs 0.1 0.0 - 0.5 x10(3)/mcL CERNER MILLENNIUM Basophil % 0.5 0.0 - 2.0 % CERNER MILLENNIUM Baso Absolute 0.0 0.0 - 0.2 x10(3)/mcL CERNER MILLENNIUM Immature Gran % 0.00 0.00 - 0.66 % CERNER MILLENNIUM Comment: Immature granulocytes(IG's)percentage and absolute count will include metamyelocytes, myelocytes, and promyelocytes. Blood smears from CBCs yielding IG's will be scanned manually for concordance. If this scan disagrees with the automated IG or if promyelocytes are noted, a manual differential will be performed. Immature Gran Absolute 0.00 0.00 - 0.05 x10(3)/mcL [facility] Blood specimen (specimen) 03/10/2012 10:58 AM EST 03/10/2012 12:44 PM EST Oscar Osborn III, MD HEMATOLOGY EMMA MARTIN Performing Organization Address [facility] [[email or web address]] Co de Phone Number [facility] * Alanine Aminotransferase (03/10/2012 10:58 AM EST) Alanine Aminotransferase 12 0 - 40 unit/L [facility] Blood specimen (specimen) 03/10/2012 10:58 AM EST 03/10/2012 12:43 PM EST Narrative Resulting Agency Comment Spec In Lab Oscar Osborn III, MD CHEMISTRY ORDER MIKI Performing Organization Address [facility] de Phone Number [facility] * Aspartate Aminotransferase (03/10/2012 10:58 AM EST) Aspartate Aminotransferase 20 10 - 40 unit/L [facility] Blood specimen (specimen) 03/10/2012 10:58 AM EST 03/10/2012 12:43 PM EST Narrative Resulting Agency Comment Spec In Lab Oscar Osborn III, MD CHEMISTRY ORDER MIKI Performing Organization Address [facility] de Phone Number [facility] * Cholesterol, total (03/10/2012 10:58 AM EST) Cholesterol, Total 142 <=199 mg/dL [facility] Comment: Recommendations of the NCEP Adult Treatment Panel for the following risk cutoff thresholds for the [place] population: Desirable: <200 mg/dL Borderline High: 200-239 mg/dL High: > or = 240 mg/dL Blood specimen (specimen) 03/10/2012 10:58 AM EST 03/10/2012 12:43 PM EST Narrative Resulting Agency Comment Spec In Lab Oscar Osborn III, MD CHEMISTRY ORDER MIKI Performing Organization Address [facility]/ZIP Co de Phone Number [facility]ERNER ROMAENNIUM * CBC (with Diff) (03/10/2012 10:58 AM EST) White Blood Cell 6.2 4.0 - 10.0 x10(3)/mcL CERNER MILLENNIUM Red Blood Cell 5.23 4.63 - 6.08 x10(6)/mcL CERNER MILLENNIUM Hemoglobin 15.7 13.7 - 17.5 gm/dL CERNER MILLENNIUM Hematocrit 44.6 40.0 - 51.0 % CERNER MILLENNIUM Mean Cell Volume 85.3 79.0 - 92.0 fL CERNER MILLENNIUM Mean Cell Hemoglobin 30.0 25.6 - 32.2 pg CERNER MILLENNIUM Mean Cell Hemoglobin Concentration 35.2 32.0 - 36.5 gm/dL CERNER MILLENNIUM Platelet 199 145 - 370 x10(3)/mcL CERNER MILLENNIUM RDW Standard Deviation 39.1 35.0 - 46.0 fL CERNER MILLENNIUM RDW coefficient of variation 12.6 10.9 - 14.4 % CERNER MILLENNIUM Mean Platelet Volume 11.0 9.0 - 12.0 fL [facility]ERNER MILLENNIUM Blood specimen (specimen) 03/10/2012 10:58 AM EST 03/10/2012 12:44 PM EST Narrative Resulting Agency Comment Spec In Lab Oscar Osborn III, MD HEMATOLOGY ORDE RABBOONE [facility] * Triglyceride (03/10/2012 10:58 AM EST) Triglyceride 77 <=149 mg/dL [facility]ERNER MILLENNIUM Comment: Reference Range: Normal triglycerides: ??<150 mg/dL Borderline high: ??150-199 mg/dL High: ??200-499 mg/dL Very high: ??>mw=789 mg/dL ABEL 2000; 285(12):8552-2085 Blood specimen (specimen) 03/10/2012 10:58 AM EST 03/10/2012 12:43 PM EST Narrative Resulting Agency Comment Spec In Lab Oscar Osborn III, MD CHEMISTRY ORDER MIKI Performing Organization Address City/State/[facility] Phone Number [facility] documented in this encounter Visit Diagnoses Diagnosis On Accutane therapy- Primary Encounter for long-term (current) use of other medications Acne Other acne documented in this encounter Care Teams Knitter Helper Relationship Specialty Start Date End Date Sabas Baker DO [address] [place] [address] PCP - General 02/18/10 documented as of this encounter
--- OUTSIDE RECORDS SUMMARY | 2023-11-18 10:04 | XMS_ITS | Encounter Summary ---
Author Organization [facility] Address [facility] [place] [address] Care Team Providers Care Warehouse Inventory Clerk Name Role Phone Sabas Baker DO Primary Care Provider [phone] Encounter Details Date Type Department Care Team (Late st Contact Info) Description 06/12/2010 4:30 PM EDT [place] [address] Oscar Osborn III, MD [facility] [address] [place] [address] Discharge Disposition: Home Social History Tobacco Use [...] on filedocumented in this encounter Care Teams Warehouse Inventory Clerk Relationship Specialty Start Date End Date Sabas Baker DO [address] [place] [address] PCP - General 02/18/10 documented as of this encounter
--- OUTSIDE RECORDS SUMMARY | 2023-11-18 10:04 | XMS_ITS | Encounter Summary ---
Author Organization [facility] Address [facility] [place] [address] Care Team Providers Care Cleaner Industrial Name Role Phone Sabas Baker DO Primary Care Provider [phone] Reason for Visit * Reason Onset Date Comments Medication Refill 10/11/2012 Encounter Details Date Type Department Care Team (Late st Contact Info) Description 10/11/2012 Refill Dermatology at [facility] [address] [place] [address] Oscar Osborn III, MD [facility] [address] [place] [address] Social History Tobacco Use Types Packs/Day Years [...] on filedocumented in this encounter Care Teams Cleaner Industrial Relationship Specialty Start Date End Date Sabas Baker DO [address] [place] [address] PCP - General 02/18/10 documented as of this encounter
--- OUTSIDE RECORDS SUMMARY | 2023-11-18 10:04 | XMS_ITS | Encounter Summary ---
Author Organization [facility] Address [facility] [place] [address] Care Team Providers Care Regional Branch Manager Name Role Phone Sabas Baker DO Primary Care Provider [phone] Reason for Visit * Reason Comments Syncope and Collapse Tachycardia Encounter Details Date Type Department Care Team (Late st Contact Info) Description 04/08/2011 2:40 PM EST Office Visit Cardiology at [address] [phone] Jayson Alston MD [facility] [place] [address] Syncope (Primary Dx) Discharge Disposition: Home Social History [...] Sign Reading Time Taken Comments Blood Pressure 124/76 04/08/2011 2:19 PM EST Lt arm sitting Pulse 110 04/08/2011 2:19 PM EST Regul ar Temperature - - Respiratory Rate - - Oxygen Saturation - - Inhaled Oxygen Concentration - - Weight 68 kg (150 lb) 04/08/2011 2:19 PM EST Height 185.4 cm (6' 1) 04/08/2011 2:19 PM EST Body Mass Index 19.79 04/08/2011 2:19 PM EST Body Mass Index Percentile 15.08% 04/08/2011 2:1 9 PM EST Growth Chart: CDC (Boys, 2-2 0 Years) documented in this encounter Progress Notes * Jayson Alston T - 04/08/2011 3:06 PM EST Subjective: Patient ID: Truong Blankenship is a 20 y.o. male. HPI Patient Name: Truong Blankenship Date of Visit: April 08, 2011 PCP: Sabas Baker M.D. Reason for Visit: Office consultation Dear Vickey: Truong Blankenship is a pleasant 20-year-old gentleman who comes in today with his mother because of two episodes of syncope (actually three if you include an episode where he passed out giving blood in the past). His history includes the followin. Social history: He has lived in [place] his entire life. He has a younger sibling who is 15, a sister. 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 His parents are both teachers in the area. He has never smoked. He does not drink. He does not use drugs. He has no known allergies. He enjoys his life. He has no complaints. 2. No surgical history. 3. Weight stable at 150. 4. Exercise: Fully active. 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 He does vigorous workouts without limitations. 5. No GERD. 6. No thyroid disease. Recent TSH was normal at 1.42. 7. Family history: Father is 55 and healthy. Mother is 50 and healthy. Sister is 15 and well. He has grandparents on the mother???s side with history of heart attacks in their 70s and 80s. They were not smokers. None on the father???s 8. Childhood illnesses: He had febrile seizure as a child. 9. No hypertension. Blood pressure 108/56. 10. No diabetes. 11. Recent cholesterol of 164, HDL 57, LDL 97. 12. Syncope: He has had three episodes of syncope. One episode occurred when he was giving blood a few years ago. More recently in August, he was working at a camp. He went to take a shower and startedfeeling sick to his stomach in the shower. He then developed lightheadedness, dizziness, and felt somewhat warm. He got outside the shower and sat down in a chair and passed out transiently. He woke up within seconds and went back to his room and laid down and gradually felt better. Like any good adolescent male, he did not seek medical attention at this time. He did well but had a second episode at [facility]. He ended an alpine workout doing vigorous activity. He then was walking back to his room, felt sick to his stomach and dizzy. He was diaphoretic. His heart was racing. He went to the bathroom, sat down for a little bit, felt better and then went back to his room and laid down. He took his pulse and it was about 120-130. It gradually slowed down and then he felt better, but he still felt that he wanted to seek attention and went to the emergencyroom in [place]. They did labs which were normal and a CT scan (presumably looking for pulmonary embolism) which was, by repot, normal. He ended up going back to see you to talk about it. His ECG showed normal sinus rhythm but no evidence of WPW, no evidence of Brugada syndrome. He had an echocardiogram. I do not have that report butby report it was structurally normal. He had a stress test today which was remarkable for the fact that his resting ECG showed athlete???s heart with LVH. He had incredible exercise capabilities. He reached a high level of athlete protocol to a heart rate of 206, blood pressure normal at 146/64. Hewalked for 12 minutes and 33 seconds, reaching 25 METS! There were no exercise-induced arrhythmias and he had no complaints. Blood pressure response, as noted, was normal. As noted, he had one other episode while giving blood a couple of years ago. His labs were normal including normal electrolytes, normal magnesium, and normal thyroid. His TSH was also normal at 0.11. Physical exam is unremarkable. Review of Systems Constitutional: Negative. HENT: Negative. Eyes: Negative. Cardiovascular: Negative. Respiratory: Negative. Endocrine: Negative. Skin: Negative. Musculoskeletal: Negative. Gastrointestinal: Negative. Genitourinary: Negative. Neurological: Negative. Psychiatric/Behavioral: Negative. Objective: Physical Exam Constitutional: He is oriented to person, place, and time. He appears well- developed and well-nourished. HENT: Head: Normocephalic and atraumatic. Eyes: Conjunctivae are normal. Pupils are equal, round, and reactive to light. Neck: Normal range of motion. Neck supple. Cardiovascular: Normal rate and regular rhythm. BP124/76 Pulse 85 Pulmonary/Chest: Effort normal and breath sounds normal. Abdominal: Soft. Bowel sounds are normal. Musculoskeletal: Normal range of motion. Neurological: He is alert and oriented to person, place, and time. He has normal reflexes. Skin: Skin is warm and dry. Assessment and Plan: Impression: Episodes most consistent with vasovagal syncope. His episode of passing out giving blood is classic for this. There is no evidence of structural heart disease, no exercise-induced arrhythmias. I basically reassured Truong and his mother at this time and encouraged him to maintain hydration and even salt his food a little bit since he tends to run a low blood pressure. If blood pressure remains low over the ad terminal makeup operator, you could always consider checking cortisol levels but I doubt adrenal insufficiency. He has no other symptoms suggestive of that. Plan: 1. A review of the active management and working diagnosis(es) was conducted. 2. The patient's medication list was updated and new Rxs given as needed. 3. Questions were answered. 4. Maintain hydration. If he does have one of these episodes, do not get up, walk around, or sit down???lay down. 5. Hydrate and salt food as noted. 6. I did not set up a follow-up appointment for Truong, but I would be happy to see him in follow-up if you deem it necessary. 7. I would also note that given his family history, he should have close follow- up on his cholesterol nursing home as well as CRP with consideration of therapy as appropriate. documented in this encounter Plan of Treatment Not on file documented as of this encounter Visit Diagnoses Diagnosis Syncope- Primary Syncope and collapse documented in this encounter Care Teams Regional Branch Manager Relationship Specialty Start Date End Date Sabas Baker DO [address] [place] [address] PCP - General 02/18/10 documented as of this encounter
--- OUTSIDE RECORDS SUMMARY | 2023-11-18 10:04 | XMS_ITS | Encounter Summary ---
Author Organization [facility] Address [address] [place] [address] Care Team Providers Care Surveyor Chain Helper Name Role Phone Unknown, Provider Primary Care Provider [phone] Encounter Details Date Type Department Care Team (Late st Contact Info) Description 11/17/2023 Lab Requisition [facility] Pathology & Laboratory Medicine - [facility] [address] [place] [address] Outr Resulting Lab, Provider Social History Tobacco Use Types Packs/Day Years [...] PROTEIN (CARDIOVASCULAR DISEASE) Routine 11/16/2023 21:20 EDT documented in this encounter Results * HIGH SENSITIVITY C-REACTIVE PROTEIN (CARDIOVASCULAR DISEASE) (11/16/2023 21:20 EDT) High Sensitivity CRP 4.96 See Note mg/L 11/17/2023 17:55 EDT [facility] Comment: Reference Range: ??Low Risk: ? <1.0 mg/L ??Average Risk: ?? 1.0 - 3.0 mg/L ??High Risk: ?>3.0 mg/L ??Indeterminate*: >10.0 mg/L ??*May be an indication of another source of inflammation or infection Blood VENOUS BLOOD / Unknown 11/16/2023 21:20 EDT 11/17/2023 17:26 EDT Provider Outr Resulting Lab CHEMISTRY & BLOOD GAS ORDERABLES [facility] [address] [phone] documented in this encounter Visit Diagnoses Not on filedocumented in this encounter Care Teams Surveyor Chain Helper Relationship Specialty Start Date End Date Unknown, Provider, PCP - General 10/27/21 documented as of this encounter
--- OUTSIDE RECORDS SUMMARY | 2023-11-18 10:04 | XMS_ITS | Encounter Summary ---
Author Organization [facility] Address [facility] [place] [address] Care Team Providers Care Bpm Architect Name Role Phone Samuel, Sabas HORN Primary Care Provider [phone] Reason for Visit * Reason Comments Acne Encounter Details Date Type Department Care Team (Late st Contact Info) Description 09/30/2010 11:00 AM EDT Follow-[place] [address] Oscar Osborn III, MD [facility] [address] [place] [address] Acne (Primary Dx) Discharge Disposition: Home Social History Tobacco Use Types Packs/Day Years Used Date Smoking Tobacco: Never Alcohol Use Standard Drinks/Week Comments Not Asked 0 (1 standard drink = 0.6 oz pur e alcohol) Sex and Gender Information Value Date Recorded Sex Assigned at Not on file Gender Identity Not on file Sexual Orientation Not on file documented as of this encounter Progress Notes * Oscar Osborn III, MD - 09/30/2010 11:26 AM EDT DERMATOLOGY ESTABLISHED PATIENT CLINIC NOTE Date of service: 09/30/2010 Truong Blankenship : 1990 Provider: Oscar Osborn MD PROBLEM: acne SKIN HISTORY: acne HPI Truong Blankenship is a 20 y.o. year old male. Here today to f/u his acne. He is pleased with the results. He is on Doxy 100 mg QD, Differin 0.1% hs, and cleocin lotion. He is ready to begin weaning off his meds. He goes off to college in the fall. ADR: No Known Allergies ROS General: feeling well Skin: denies other skin complaints EXAM General: NAD, pleasant, cooperative Skin:focused exam of face Significant skin findings: A. Occasional Erythematous papules and pustules on face. No lesion on the back and chest/ No cystic lesions or scarring noted. ASSESSMENT/PLAN: A. Acne. Doing well. Again I encouraged him to begin to wean off the oral antibiotic. He should do well of QOD dosage. If this is the case he can even stop his meds for a while, re-instituting therapy if he flares.. B. RTC 2 months if needed or at the holidays,unless there are problems. Note initiated by: Sandra Evangelista LPN Routed to physician for review and changes: Oscar Osborn MD Section of Dermatology [facility] documented in this encounter Plan of Treatment Not on file documented as of this encounter Visit Diagnoses Diagnosis Acne- Primary Other acne documented in this encounter Care Teams Bpm Architect Relationship Specialty Start Date End Date Sabas Baker DO [address] [place] [address] PCP - General 02/18/10 documented as of this encounter
--- OUTSIDE RECORDS SUMMARY | 2023-11-18 10:04 | XMS_ITS | Encounter Summary ---
Author Organization [facility] [place] [address] Care Team Providers Care Snuff Blender Name Role Phone Sabas Baker DO Primary Care Provider Reason for Visit * Reason Onset Date Comments Medication Refill 07/07/2010 Encounter Details Date Type Department Care Team (Late st Contact Info) Description 07/07/2010 [place] [address] Oscar Osborn III, MD [facility] [address] [place] [address] Acne (Primary Dx) Social History Tobacco Use [...] acne documented in this encounter Care Teams Snuff Blender Relationship Specialty Start Date End Date Sabas Baker DO [address] [place] [address] PCP - General 02/18/10 documented as of this encounter
--- OUTSIDE RECORDS SUMMARY | 2023-11-18 10:04 | XMS_ITS | Encounter Summary ---
Author Organization [facility] Address [facility] [place] [address] Care Team Providers Care Medical Officer Name Role Phone Samuel Sabas HORN Primary Care Provider [phone] Reason for Visit * Reason Comments Acne Encounter Details Date Type Department Care Team (Late st Contact Info) Description 10/30/2010 2:00 PM EDT [place] [address] Oscar Osborn III, MD [facility] [address] [address] Acne (Primary Dx) Discharge Disposition: Home Social [...] Notes * Oscar Osborn III, MD - 10/30/2010 2:02 PM EDT DERMATOLOGY ESTABLISHED PATIENT CLINIC NOTE Date of service: 10/30/2010 Truong Blankenship : 1990 Provider: Oscar Osborn MD PROBLEM: acne SKIN HISTORY: acne HPI Truong Blankenship is a 20 y.o. year old male. Truong is getting his acne rechecked before he goes back to school. He has been taking the Doxycycline and using his topical medications as prescribed and is happy with the results. ADR: No Known Allergies ROS General: feeling well Skin: denies other skin complaints EXAM General: NAD, pleasant, cooperative male. An exam of the skin from the neck up was performed. This includes examination of the skin of the face, ears, scalp, and neck. Skin: Significant skin findings: A. Few superficial erythematous papules, no pustules, few open comedones B. Back and chest are clear ASSESSMENT/PLAN: A. Acne improved. We will keep him on the present regimen. After he has been at school for a while and settled in, he will try to wean off the doxycycline and use as needed for flares. He will continue topicals daily. B. We will see him when he needs us on one of his vacations. Note initiated by: .Lindy Lewis LPN Routed to physician for review and changes: Oscar Osborn MD Section of Dermatology [facility] documented in this encounter Plan of Treatment Not on file documented as of this encounter Visit Diagnoses Diagnosis Acne- Primary Other acne documented in this encounter Care Teams Medical Officer Relationship Specialty Start Date End Date Sabas Baker DO [address] [place] [address] PCP - General 02/18/10 documented as of this encounter
--- OUTSIDE RECORDS SUMMARY | 2023-11-18 10:04 | XMS_ITS | Encounter Summary ---
Author Organization [facility] Address [facility] [place] [address] Care Team Providers Care Analytic Programmer Name Role Phone Sabas Baker DO Primary Care Provider [phone] Encounter Details Date Type Department Care Team (Late st Contact Info) Description 02/19/2010 3:15 PM EST Office [place] [address] Oscar Osborn III, MD [facility] [address] [place] [address] Social History Tobacco Use Types Packs/Day Years Used Date Smoking Tobacco: Never Assessed Sex and Gender Information Value Date Recorded Sex Assigned at Not on file Gender Identity Not on file Sexual Orientation Not on file documented as of this encounter Plan of Treatment Not on file documented as of this encounter Visit Diagnoses Not on filedocumented in this encounter Care Teams Analytic Programmer Relationship Specialty Start Date End Date Sabas Baker DO [address] [place] [id number] PCP - General 02/18/10 documented as of this encounter
--- OUTSIDE RECORDS SUMMARY | 2023-11-18 10:04 | XMS_ITS | Encounter Summary ---
Author Organization [facility] Address [address] [place] [address] Care Team Providers Care Accounts Payable Administrator Name Role Phone Unknown, Provider Primary Care Provider Encounter Details Date Type Department Care Team (Late st Contact Info) Description 10/27/2021 Lab Requisition [facility] Pathology & Laboratory Medicine - [facility] [address] [place] [address] Outr Resulting Lab, Provider Social History Tobacco [...] Procedure Name Priority Date/Time Associated Diagnosis Comments PARASITE EXAM, BLOOD Routine 10/27/2021 17:10 EDT documented in this encounter Results * PARASITE EXAM, BLOOD (10/27/2021 17:10 EDT) [facility] Malaria Antigen Presumptive negative for malaria antigens, see the parasite identification result for confirmation by thin/thick smear microscopy. Presumptive negative for malaria antigens, see the parasite identification result for confirmation by thin/thick smear microscopy. 2 7:55 EDT [facility] Parasite Identification No blood parasite seen. Single negative specimen does not rule out parasitic infection. No blood parasite seen, No organism seen. PCR is the most sensitive method for Anaplasmosis or Ehrlichiosis 2 7:55 EDT [facility] Comment:This is an appended report. These results have been appended to a previously preliminary verified report. Blood VENOUS BLOOD / Unknown 10/27/2021 17:10 EDT 10/28/2021 16:50 EDT Provider Outr Resulting Lab MICROBIOLOGY - GENERAL ORDERABLES [facility] [address] [place] [address] documented in this encounter Visit Diagnoses Not on filedocumented in this encounter Care Teams Accounts Payable Administrator Relationship Specialty Start Date End Date Unknown, Provider, PCP - General 10/27/21 documented as of this encounter
--- OUTSIDE RECORDS SUMMARY | 2023-11-18 10:04 | XMS_ITS | Clinical Summary ---
Author Organization [facility] Address [facility] [address] [place] [address] Care Team Providers Care Sea Shell Gatherer Name Role Phone Sabas Baker DO Primary Care Provider [phone] Allergies No known active allergies Medications Medication Sig Dispensed Refills Start Date End Date Status doxycycline (MONODOX) 100 mg capsuleIndications: Acne Take one pill a day for acne with food. Patient will need 4 month supply, [place]. 120 capsule 0 10/24/2012 Active adapalene (DIFFERIN) 0.1 % creamIndications:Ac ne Apply topically at bedtime for acne 45 g 4 10/24/2012 Active clindamycin (CLEOCIN T) 1 % lotionIndications:A cne Apply to face in the am for acne 120 mL 3 10/24/2012 Active Active Problems Problem Noted Date Diagnosed Date Syncope 04/07/2011 Acne 09/30/2010 Social History Tobacco Use Types Packs/Day Years Used Date Smoking Tobacco: Never Smokeless Tobacco: Never Alcohol Use Standard Drinks/Week Comments Not Asked 0 (1 standard drink = 0.6 oz pur e alcohol) Sex and Gender Information Value Date Recorded Sex Assigned at Not on file Gender Identity Not on file Sexual Orientation Not on file Last Filed Vital Signs Vital Sign Reading Time Taken Comments Blood Pressure 124/76 04/08/2011 2:19 PM EST Lt arm sitting Pulse 110 04/08/2011 2:19 PM EST Regul ar Temperature - - Respiratory Rate - - Oxygen Saturation - - Inhaled Oxygen Concentration - - Weight 67.1 kg (148 lb) 03/10/2012 10:26 AM EST Height 185.4 cm (6' 1) 04/08/2011 2:19 PM EST Body Mass Index 19.53 04/08/2011 2:19 PM EST Plan of Treatment Health Maintenance Due Date Last Done Comments HIV screen 2010 Hepatitis C Screening 2010 Hepatitis B vaccine (0-59 yrs) (1) 06/22/2011 Tdap adult 06/22/2011 Tetanus vaccine 06/22/2011 Covid-19 Vaccine (1 - 2022- season) 2022 Influenza (Flu) vaccine (1 o f 1 - Influenza standard series) 11/28/2023 Care Teams Sea Shell Gatherer Relationship Specialty Start Date End Date Sabas Baker DO [address] [place] [address] [address] [place] [address] PCP - General 02/18/10
[2023-11-18] MEDS: Gadoterate meglumine 20 ML SYRINGE IVP (14:39)
[2023-11-18] MEDS: Normal Saline Flush 10 ML SYR IJ (14:40)
== END 2023-11-18 10:20 ==
LOC: DI 10:02
PROVIDERS: PCP Nurse Practitioner Family; Visit Provider Physician Assistant
DX: R10.2 Pelvic and perineal pain (principal)
CPT/HCPCS: 72197